=== PATIENT | male | born 1980 | race Hispanic/Latino ===

== ENCOUNTER → 2018-07-20 10:36 | Outpatient (CLI) | payer OTHER, SELFPAY ==
--- NOTE | 2018-07-20 | DI.RAD.S_ITS ---
PROCEDURE: XR SHOULDER LT MIN 2V INDICATIONS: LEFT SHOULDER TENDERNESS TECHNIQUE: 3 views of the shoulder were acquired. COMPARISON: [facility], , SHOULDER MINIMUM 2VIEW RIGHT, 08/14/2017, 14:21. FINDINGS: Bones: No fractures or dislocations. No suspicious bony lesions. Visualized ribs appear intact. Mild glenohumeral spurring Soft tissues: No suspicious soft tissue calcifications. IMPRESSION: No fracture. Mild degenerative spurring. Dictated by: Ramesh Mosley M.D. on 07/20/2018 at 12:07 Approved by: Ramesh Mosley M.D. on 07/20/2018 at 12:09
== END ==
PROVIDERS: Visit Provider Nurse Practitioner Family
DX: M25.512 Pain in left shoulder (principal); M75.92 Shoulder lesion, unspecified, left shoulder
CPT/HCPCS: 73030

== ENCOUNTER 2018-08-04 08:35 | Emergency (ER) | payer OTHER, SELFPAY ==
--- NOTE | 2018-08-04 10:30 | ED.UPPEXIN ---
HPI - Extremity Injury (Upper) General Chief Complaint: Extremity Injury, Upper Stated Complaint: LEFT SHOULDER PAIN Time Seen by Provider: 08/04/18 10:30 Source: patient and family ( ) Mode of arrival: ambulatory Limitations: language barrier ( is translating, they defer hardware technician) History of Present Illness HPI narrative: This is a 37-year-old male who comes with complaint of left shoulder pain. Patient initially had a right shoulder injury which he has been on limited work restrictions so he has been using his left shoulder majority of the time. Patient states that he had been working pretty extensively with the shoulder and had done some additional work from normal. 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 Patient has not had any weakness but he does have pain with movement. Patient has little bit numbness over the shoulder itself. None radiating down the arm. Pain radiates about midway down the humerus. Patient does not have any problems with gripping or dropping items. Patient has been taking meloxicam and over the last 24 hr has not been controlling his pain. He has seen a physician and had an x-ray on July about 2 weeks ago here at the hospital. He was told there was some changes in the joint. Related Data Home Medications Medication Instructions Recorded Confirmed meloxicam 15 mg PO DAILY 08/04/18 08/04/18 Previous Rx's Medication Instructions Recorded hydrocodone-acetaminophen [Burnside] 1 tab PO Q6H PRN #10 tab 08/04/18 prednisone 40 mg PO DAILY #10 tab 08/04/18 Allergies Allergy/AdvReac Type Severity Reaction Status Date / Time No Known Drug Allergies Allergy Verified 08/04/18 10:32 Review of Systems Constitutional Denies weakness ENT Ears, Nose, Mouth, and Throat: Denies neck pain Musculoskeletal Denies back pain, Reports arthralgias, Denies joint swelling, Reports limited range of motion, Denies muscle weakness, Denies neck pain, Reports numbness (over shoulder), Reports stiffness and Denies tingling Integumentary/Breasts Denies erythema, Denies unusual bruising and Denies wounds Neurologic Denies focal weakness, Reports numbness (over shoulder), Denies sensory deficit, Denies tingling and Denies weakness Exam Narrative Exam Narrative: GENERAL: Alert and oriented x three, Well-nourished, well-appearing male in mild distress. HEENT: Head normocephalic, atraumatic, EOMI, pupils reactive, face symmetric, moist mucous membranes NECK: Supple, full range of motion CARDIOVASCULAR: Regular rate and rhythm without murmurs, rubs or gallops. RESPIRATORY: Breath sounds equal bilaterally, no wheezes rales or rhonchi. ABDOMEN: Soft, nontender. Normoactive bowel sounds all 4 quadrants. No guarding or rebound, rigidity, no mass EXTREMITIES: Normal range of motion, no clubbing or edema. 2+ pulses bilateral upper extremities. Cloth Finishing Range Back Tender is equal bilaterally patient has equal strength push and pull. Patient has discomfort with internal external rotation as well as flexion extension. He has tenderness over the biceps tendon with movement but not specifically he indicates more than generalized shoulder. Patient has sort of generalized discomfort with palpation with no distinct bony pain. Patient does not have any tenderness to the cervical spine. Neurovascularly intact NEUROLOGICAL: Cranial nerves II through XII grossly intact. Moving all extremities SKIN: Warm, dry, no petechiae, no rashes or lesions. Initial Vital Signs Initial Vital Signs: Vital Signs Temperature 98.1 F 08/04/18 10:32 Pulse Rate 95 H 08/04/18 10:32 Respiratory Rate 16 08/04/18 10:32 Blood Pressure 149/94 H 08/04/18 10:32 Pulse Oximetry 99 08/04/18 10:32 Course Orders Ordered: Discontinued Medications Ketorolac Tromethamine (Toradol) 60 mg IM NOW ONE Stop: 08/04/18 10:58 Last Admin: 08/04/18 11:23 Dose: 60 mg Vital Signs - 8 hr 08/04/18 10:32 08/04/18 11:43 08/04/18 11:53 Temperature 98.1 F Pulse Rate 95 H 80 Respiratory Rate 16 14 Blood Pressure 149/94 H 135/94 H Blood Pressure [Right Arm] 136/101 H Pulse Oximetry 99 96 MDM - Extremity Injury (Upper) Imaging Data left shoulder xray 07/20/18: Radiologist's impression: Aminta BonBean H 37 M [address] [address] XRay Report Signed Patient: Bean Yun R#: [id number] : 1980Acct:[id number] Age/Sex: 37 / MDate of Service: 07/20/18 Loc: [facility] Accession Number: [id number] Procedure: XR shoulder LT min 2V Ordering Provider: Juancho Myrick PROCEDURE: XR SHOULDER LT MIN 2V INDICATIONS: LEFT SHOULDER TENDERNESS TECHNIQUE: 3 views of the shoulder were acquired. COMPARISON: [facility], , SHOULDER MINIMUM 2VIEW RIGHT, 08/14/2017, 14:21. FINDINGS: Bones: No fractures or dislocations. No suspicious bony lesions. Visualized ribs appear intact. Mild glenohumeral spurring Soft tissues: No suspicious soft tissue calcifications. IMPRESSION: No fracture. Mild degenerative spurring. Dictated by: Ramesh Mosley M.D. on 07/20/2018 at 12:07 Approved by: Ramesh Mosley M.D. on 07/20/2018 at 12:[address] [facility] Narrative Medical decision making narrative: X-ray was reviewed from earlier this month, patient has some degenerative changes. Based on his symptomatology I suspect a little bit of a tendinitis or an overuse injury.although he does not have any changes specific to a biceps tendinitis. Plan to try a short course of steroids. Patient has meloxicam and given a short course of narcotic pain medication. Discharge Plan Departure Patient Disposition: Home Clinical Impression: Left shoulder pain Discharge Date/Time: 08/04/18 11:54 Interventions: ED Discharge Assessment Last Done: 08/04/18 11:53 Instructions: DI for Tendinitis Activity Restrictions/Additional Instructions: Follow up with your L & I provider and/or orthopedic surgery in the next week for recheck. Call for an appointment. You may take narcotic pain medication 1 tablet every 6 hr as needed for pain. You may take this with your meloxicam as prescribed. Take steroids once daily until gone. This is to help decrease inflammation in the shoulder joint. 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 Prescriptions: New hydrocodone-acetaminophen [Burnside] 5-325 mg tablet 1 tab PO Q6H PRN (Reason: pain) Qty: 10 RF: 0 prednisone 20 mg tablet 40 mg PO DAILY Qty: 10 RF: 0 No Action meloxicam 15 mg tablet 15 mg PO DAILY RF: 0 Referrals: Sravan Iverson MD [Physician] - Stand Alone Forms: Work Release Note
[2018-08-04 10:32] VITALS: BP 149/94; PULSE 95; RESP 16; TEMP 36.7; O2SAT 99; BMI 29.7
--- NOTE | 2018-08-04 10:57 | ED_ITS ---
HPI - Extremity Injury (Upper) General Chief Complaint: Extremity Injury, Upper Stated Complaint: LEFT SHOULDER PAIN Time Seen by Provider: 08/04/18 10:30 Source: patient and family ( ) Mode of arrival: ambulatory Limitations: language barrier ( is translating, they defer social work coordinator) History of Present Illness HPI narrative: This is a 37-year-old male who comes with complaint of left shoulder pain. Patient initially had a right shoulder injury which he has been on limited work restrictions so he has been using his left shoulder majority of the time. Patient states that he had been working pretty extensively with the shoulder and had done some additional work from normal. 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 Patient has not had any weakness but he does have pain with movement. Patient has little bit numbness over the shoulder itself. None radiating down the arm. Pain radiates about midway down the humerus. Patient does not have any problems with gripping or dropping items. Patient has been taking meloxicam and over the last 24 hr has not been controlling his pain. He has seen a physician and had an x-ray on July about 2 weeks ago here at the hospital. He was told there was some changes in the joint. Related Data Home Medications Medication Instructions Recorded Confirmed meloxicam 15 mg PO DAILY 08/04/18 08/04/18 Previous Rx's Medication Instructions Recorded hydrocodone-acetaminophen [Blackshear] 1 tab PO Q6H PRN #10 tab 08/04/18 prednisone 40 mg PO DAILY #10 tab 08/04/18 Allergies Allergy/AdvReac Type Severity Reaction Status Date / Time No Known Drug Allergies Allergy Verified 08/04/18 10:32 Review of Systems Constitutional Denies weakness ENT Ears, Nose, Mouth, and Throat: Denies neck pain Musculoskeletal Denies back pain, Reports arthralgias, Denies joint swelling, Reports limited range of motion, Denies muscle weakness, Denies neck pain, Reports numbness (over shoulder), Reports stiffness and Denies tingling Integumentary/Breasts Denies erythema, Denies unusual bruising and Denies wounds Neurologic Denies focal weakness, Reports numbness (over shoulder), Denies sensory deficit, Denies tingling and Denies weakness Exam Narrative Exam Narrative: GENERAL: Alert and oriented x three, Well-nourished, well-appearing male in mild distress. HEENT: Head normocephalic, atraumatic, EOMI, pupils reactive, face symmetric, moist mucous membranes NECK: Supple, full range of motion CARDIOVASCULAR: Regular rate and rhythm without murmurs, rubs or gallops. RESPIRATORY: Breath sounds equal bilaterally, no wheezes rales or rhonchi. ABDOMEN: Soft, nontender. Normoactive bowel sounds all 4 quadrants. No guarding or rebound, rigidity, no mass EXTREMITIES: Normal range of motion, no clubbing or edema. 2+ pulses bilateral upper extremities. Adjuster And Inspector is equal bilaterally patient has equal strength push and pull. Patient has discomfort with internal external rotation as well as flexion extension. He has tenderness over the biceps tendon with movement but not specifically he indicates more than generalized shoulder. Patient has sort of generalized discomfort with palpation with no distinct bony pain. Patient does not have any tenderness to the cervical spine. Neurovascularly intact NEUROLOGICAL: Cranial nerves II through XII grossly intact. Moving all extremities SKIN: Warm, dry, no petechiae, no rashes or lesions. Initial Vital Signs Initial Vital Signs: Vital Signs Temperature 98.1 F 08/04/18 10:32 Pulse Rate 95 H 08/04/18 10:32 Respiratory Rate 16 08/04/18 10:32 Blood Pressure 149/94 H 08/04/18 10:32 Pulse Oximetry 99 08/04/18 10:32 Course Orders Ordered: Discontinued Medications Ketorolac Tromethamine (Toradol) 60 mg IM NOW ONE Stop: 08/04/18 10:58 Last Admin: 08/04/18 11:23 Dose: 60 mg Vital Signs - 8 hr 08/04/18 10:32 08/04/18 11:43 08/04/18 11:53 Temperature 98.1 F Pulse Rate 95 H 80 Respiratory Rate 16 14 Blood Pressure 149/94 H 135/94 H Blood Pressure [Right Arm] 136/101 H Pulse Oximetry 99 96 MDM - Extremity Injury (Upper) Imaging Data left shoulder xray 07/20/18: Radiologist's impression: Aminta BonBean H 37 M [address] [address] XRay Report Signed Patient: Bean Yun R#: [id number] : 1980Acct:[id number] Age/Sex: 37 / MDate of Service: 07/20/18 Loc: [facility] Accession Number: [id number] Procedure: XR shoulder LT min 2V Ordering Provider: Juancho Myrick PROCEDURE: XR SHOULDER LT MIN 2V INDICATIONS: LEFT SHOULDER TENDERNESS TECHNIQUE: 3 views of the shoulder were acquired. COMPARISON: [facility], , SHOULDER MINIMUM 2VIEW RIGHT, 08/14/2017, 14:21. FINDINGS: Bones: No fractures or dislocations. No suspicious bony lesions. Visualized ribs appear intact. Mild glenohumeral spurring Soft tissues: No suspicious soft tissue calcifications. IMPRESSION: No fracture. Mild degenerative spurring. Dictated by: Ramesh Mosley M.D. on 07/20/2018 at 12:07 Approved by: Ramesh Mosley M.D. on 07/20/2018 at 12:09 [facility] Narrative Medical decision making narrative: X-ray was reviewed from earlier this month, patient has some degenerative changes. Based on his symptomatology I suspect a little bit of a tendinitis or an overuse injury.although he does not have any changes specific to a biceps tendinitis. Plan to try a short course of steroids. Patient has meloxicam and given a short course of narcotic pain medication. Discharge Plan Departure Patient Disposition: Home Clinical Impression: Left shoulder pain Discharge Date/Time: 08/04/18 11:54 Interventions: ED Discharge Assessment Last Done: 08/04/18 11:53 Instructions: DI for Tendinitis Activity Restrictions/Additional Instructions: Follow up with your L & I provider and/or orthopedic surgery in the next week for recheck. Call for an appointment. You may take narcotic pain medication 1 tablet every 6 hr as needed for pain. You may take this with your meloxicam as prescribed. Take steroids once daily until gone. This is to help decrease inflammation in the shoulder joint. 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 Prescriptions: New hydrocodone-acetaminophen [Blackshear] 5-325 mg tablet 1 tab PO Q6H PRN (Reason: pain) Qty: 10 RF: 0 prednisone 20 mg tablet 40 mg PO DAILY Qty: 10 RF: 0 No Action meloxicam 15 mg tablet 15 mg PO DAILY RF: 0 Referrals: Sravan Iverson MD [Physician] - Stand Alone Forms: Work Release Note
[2018-08-04] MEDS: KETOROLAC 60 MG/2 ML VIAL IM (11:23)
[2018-08-04 11:43] VITALS: BP 136/101; PULSE 80; RESP 14; O2SAT 96
[2018-08-04 11:53] VITALS: BP 135/94
== END 2018-08-04 11:54 | disposition home or self-care (01) ==
PROVIDERS: Emergency Provider Emergency Medicine
DX: M25.512 Pain in left shoulder (principal); Y99.0 Civilian activity done for income or pay
CPT/HCPCS: 96372; 99282; 99283; J1885

== ENCOUNTER → 2019-09-25 14:41 | Outpatient (CLI) | payer OTHER, SELFPAY ==
--- NOTE | 2019-09-25 14:56 | DI.RAD.S_ITS ---
PROCEDURE: XR CHEST 2V INDICATIONS: Cough and fever - crackles on exam right base TECHNIQUE: 2 views of the chest were acquired. COMPARISON: [facility], , CHEST 2VW, 03/01/2013, 11:43. FINDINGS: Surgical changes and devices: None. Lungs and pleura: Lungs are clear. No pleural effusions or pneumothorax. Mediastinum: Mediastinal contours are normal. Heart size is normal. Bones and chest wall: No suspicious bony abnormalities. Soft tissues appear unremarkable. IMPRESSION: Stable chest. No acute cardiopulmonary process is evident. Dictated by: Gage Downey M.D. on 09/25/2019 at 14:58 Approved by: Gage Downey M.D. on 09/25/2019 at 14:58
[2019-09-25 15:23] LABS: Add Manual Diff / Slide Review NO; Basophils Absolute Auto 100 /uL (0-100); Basophils Percent Auto 0.8 % (0-2); Eosinophils Absolute Auto 200 /uL (0-450); Eosinophils Percent Auto 2.6 % (2-4); Hematocrit 44.6 % (41-53); Hemoglobin 14.9 g/dL (13.5-17.5); Lymphocytes Absolute Auto 1600 /uL (1100-4500); Lymphocytes Percent Auto 20.2 % (25-40); Mean Corpuscular HGB Conc 33.3 % (30-36); Mean Corpuscular Hemoglobin 28.7 PG (26-34); Mean Corpuscular Volume 86.2 fL (80-100); Monocytes Absolute Auto 800 /uL (0-900); Monocytes Percent Auto 10.1 % (3-14); Neutrophils Absolute Auto 5200 /uL (1500-7000); Neutrophils Percent Auto 66.3 % (50-75); Platelet Count 273 X10^3/uL (150-400); Red Blood Cell Count 5.18 X10^6/uL (4.5-5.9); Red Cell Distribution Width 13.9 % (11.6-14.8); White Blood Cell Count 7.9 X10^3/uL (4.5-11.0)
[2019-09-25 18:07] LABS: Adenovirus Not Detected (Not Detect); Bordetella pertussis Not Detected (Not Detect); Chlamydophila pneumoniae Not Detected (Not Detect); Coronavirus 229E Not Detected (Not Detect); Coronavirus HKU1 Not Detected (Not Detect); Coronavirus NL 63 Not Detected (Not Detect); Coronavirus OC43 Not Detected (Not Detect); Human Metapneumovirus Not Detected (Not Detect); Human Rhinovirus/Enterovirus Not Detected (Not Detect); Influenza A Not Detected (Not Detect); Influenza B Not Detected (Not Detect); Mycoplasma pneumoniae Not Detected (Not Detect); Parainfluenza Virus 1 Not Detected (Not Detect); Parainfluenza Virus 2 Not Detected (Not Detect); Parainfluenza Virus 3 Not Detected (Not Detect); Parainfluenza Virus 4 Not Detected (Not Detect); Respiratory Syncytial Virus Not Detected (Not Detect)
[2019-09-26 09:13] LABS: COVID19 Sendout Positive (Not Detect)
== END ==
PROVIDERS: Visit Provider Physician Assistant
DX: U07.1 COVID-19 (principal)
CPT/HCPCS: 36415; 71046; 85025; 87633; 87635

== ENCOUNTER 2020-08-13 16:45 | Outpatient (RCR) | payer OTHER, SELFPAY ==
--- NOTE | 2020-06-13 17:30 | PT.OIE ---
Current Diagnoses Pain in left lower leg (06/13/20) Other injury of other muscle(s) and tendon(s) of posterior muscle group at lower leg level, unspecified leg, initial encounter (06/13/20) Other injury of other muscle(s) and tendon(s) of posterior muscle group at lower leg level, unspecified leg, subsequent encounter (06/13/20) Visit Care Team Role Provider Type Maranda Mcgowan PA-C Attending Provider Advanced Accounting Professional Primary Care Provider Referring Provider Specialty: [facility] Address: [address] [place] [address], [facility] Email: [email or web address] Physical Therapy Initial Evaluation PT-OP-A Visit Information Start: 06/13/20 17:31 Freq: Status: Active Protocol: Document 06/13/20 16:40 DCW (Rec: 06/13/20 17:52 DCW [id number]) Out-Patient Physical Therapy Visit Information Visit Information Visit Type Initial Evaluation Visit Start Time 16:40 Visit Stop Time 17:20 Total Visit Minutes 45 Visit Number 1 Number of SEISMOGRAPH SHOOTER Visits 0 Evaluation Information Evaluation Date 06/13/20 PT-OP-B Current Condition Start: 06/13/20 17:31 Freq: Status: Active Protocol: Document 06/13/20 16:40 DCW (Rec: 06/13/20 17:52 DCW [id number]) Current Condition History of Current Condition Onset Date 04/07/2020 Current Complaints L leg pain, numbness, cramping History of Current Condition Pt is a 39 year old male 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 Pt injured his leg at work on 04/07/2020. 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 When he climbed down off the forklift, he heard a pop and felt immediate pain in his calf. Pt notes he took two weeks off from work, and has since returned to work. Admits that he actually feels much better when he is at work, and doesn't really have any pain or difficulty until he gets home and attempts to un-weight his leg. At work, pt uses a crew-cut sock pulled up to provide warmth and mild compression, which he reports helps him feel a lot better. Pt notes that he is doing quite a bit better than he was originally, but it still bothers him on a daily basis. PT-OP-C Subjective Start: 06/13/20 17:31 Freq: Status: Active Protocol: Document 06/13/20 16:40 DCW (Rec: 06/13/20 17:52 DCW [id number]) OP-PT Subjective Patient Comments Patient Comments I keep having unusual sensations down my leg, it's like nothing I had felt before . Patient Reported Progress Improving Patient Questionnaires Lower Extremity Functional Scale LEFS Score 50/80 LEFS Impairment 20 to 39% Impaired (Score 48- 62) PT-OP-F Manual Assessment Start: 06/13/20 17:31 Freq: Status: Active Protocol: Document 06/13/20 16:40 DCW (Rec: 06/14/20 10:04 DCW [id number]) Manual Assessments Soft Tissue Assessment Soft Tissue Mobility Assessment Tenderness to palpation 2/4: Pain with wincing deep along medial edge of left tibia, noticeable absence of muscle mass in small area along same location. Additionally, pt complaints if tenderness along left Achilles tendon and insertion. PT-OP-L Special Tests Start: 06/13/20 17:31 Freq: Status: Active Protocol: Document 06/13/20 16:40 DCW (Rec: 06/14/20 10:04 DCW [id number]) Special Tests Foot/Ankle Special Tests Talor Tilt Test Results Negative Post Tibiotalor Subluxation Test Results Negative Anterior Draw Test Results Negative PT-OP-M Strength Start: 06/13/20 17:31 Freq: Status: Active Protocol: Document 06/13/20 16:40 DCW (Rec: 06/14/20 10:04 DCW [id number]) Ankle/Foot Strength Ankle and Foot Manual Muscle Testing Left Dorsiflexion (L4) 5 Normal Plantarflexion (S1) 4+ Good+ Inversion 4+ Good+ Eversion (S1) 5 Normal PT-OP-T Assessment and Plan Start: 06/13/20 17:31 Freq: Status: Active Protocol: Document 06/13/20 16:40 DCW (Rec: 06/14/20 10:04 DCW [id number]) Physical Therapy Assessment Rehab Potential Rehabilitation Potential Fair Evaluation Complexity Number of Personal Factors/Comorbidities 0 Number of Body Systems Impaired 1-2 Clinical Presentation at Evaluation Stable Impairments Impairments Activity Tolerance,Pain,Soft Tissue Mobility,Tone Goals Two Impairment Pt experiences increased pain and numbness in leg during rest Blocker And Sewer Goal (LTG) Pt to report no increased pain after work upon removing sock from leg. LTG Duration 08/11/20 One Impairment Pt does not have an appropriate home exercise program Short Term Goal (STG) Pt to be independent and compliant with an appropriate HEP STG Duration 07/14/20 Assessment Summary Assessment Pt presents with signs and symptoms consistent with a strain of the soleus. There is a possibility, with a small area of a notable absence of muscle mass along his left medial tibia, that he has suffered a tear, and may benefit from further imaging. Pt may benefit from skilled therapy focusing on improving mobility and strength of his calf musculature. Additionally , pt was educated on the use of a LE compression stocking, which would likely provide some relief when he is at home . Physical Therapy Plan Frequency and Duration Frequency of Treatment 2x/Week Duration of Treatment Two months Plan of Care Start Date 06/13/20 Plan of Care End Date 08/11/20 Therapeutic Interventions Therapeutic Interventions Home Exercise Program,Joint Mobilizations,Manual Therapy, Patient/Caregiver Education, Self-Care/Home Management,Soft Tissue Mobilization, Therapeutic Exercises Modalities Cold Pack/Ice Massage,Electric Stimulation,Hot Packs, Ultrasound Next Visit Focus/Plan Next Note Type Treatment Note Next Visit Plan STM and modalities to calf to promote healing, gentle strengthening as tolerated
--- NOTE | 2020-06-13 17:30 | PT.OPPOC ---
Physical, Occupational & Speech Therapy At [facility] Current Diagnoses Pain in left lower leg (06/13/20) Other injury of other muscle(s) and tendon(s) of posterior muscle group at lower leg level, unspecified leg, initial encounter (06/13/20) Other injury of other muscle(s) and tendon(s) of posterior muscle group at lower leg level, unspecified leg, subsequent encounter (06/13/20) Visit Care Team Role Provider Type Maranda Mcgowan PA-C Attending Provider Advanced Burrer Operator Primary Care Provider Referring Provider Specialty: [facility] Address: [address] [place] [address], [facility] Email: [email or web address] Plan Of Care PT-OP-T Assessment and Plan Start: 06/13/20 17:31 Freq: Status: Active Protocol: Document 06/13/20 16:40 DCW (Rec: 06/14/20 10:04 DCW [id number]) Physical Therapy Assessment Rehab Potential Rehabilitation Potential Fair Evaluation Complexity Number of Personal Factors/Comorbidities 0 Number of Body Systems Impaired 1-2 Clinical Presentation at Evaluation Stable Impairments Impairments Activity Tolerance,Pain,Soft Tissue Mobility,Tone Goals Two Impairment Pt experiences increased pain and numbness in leg during rest Keno Terminal Operator Goal (LTG) Pt to report no increased pain after work upon removing sock from leg. LTG Duration 08/11/20 One Impairment Pt does not have an appropriate home exercise program Short Term Goal (STG) Pt to be independent and compliant with an appropriate HEP STG Duration 07/14/20 Assessment Summary Assessment Pt presents with signs and symptoms consistent with a strain of the soleus. There is a possibility, with a small area of a notable absence of muscle mass along his left medial tibia, that he has suffered a tear, and may benefit from further imaging. Pt may benefit from skilled therapy focusing on improving mobility and strength of his calf musculature. Additionally , pt was educated on the use of a LE compression stocking, which would likely provide some relief when he is at home . Physical Therapy Plan Frequency and Duration Frequency of Treatment 2x/Week Duration of Treatment Two months Plan of Care Start Date 06/13/20 Plan of Care End Date 08/11/20 Therapeutic Interventions Therapeutic Interventions Home Exercise Program,Joint Mobilizations,Manual Therapy, Patient/Caregiver Education, Self-Care/Home Management,Soft Tissue Mobilization, Therapeutic Exercises Modalities Cold Pack/Ice Massage,Electric Stimulation,Hot Packs, Ultrasound Next Visit Focus/Plan Next Note Type Treatment Note Next Visit Plan STM and modalities to calf to promote healing, gentle strengthening as tolerated Plan of Care Dates Plan of Care Start Date 06/13/20 Plan of Care End Date 08/11/20 Electronically Signed by: Kirill Mccarthy, PT 06/14/20 1005 Please Sign and Return: I have reviewed this Plan of Care and certify that the skilled therapy services above are required to meet the patient?s needs. Physician Signature Date Printed Name and Credentials Clinical Instructor Signature Printed Name and Credentials
--- NOTE | 2020-06-18 17:42 | PT.OTN ---
Current Diagnoses Pain in left lower leg (06/18/20) Other injury of other muscle(s) and tendon(s) of posterior muscle group at lower leg level, unspecified leg, initial encounter (06/18/20) Other injury of other muscle(s) and tendon(s) of posterior muscle group at lower leg level, unspecified leg, subsequent encounter (06/18/20) Physical Therapy Treatment Note PT-OP-A Visit Information Start: 06/13/20 17:31 Freq: Status: Active Protocol: Document 06/18/20 16:45 DCW (Rec: 06/18/20 17:38 DCW [id number]) Out-Patient Physical Therapy Visit Information Visit Information Visit Type Treatment Note Visit Note Pt and sign language interpreter attend 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 Pt injured his leg at work on 04/07/2020. 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 When he climbed down off the forklift, he heard a pop and felt immediate pain in his calf. Pt notes he took two weeks off from work, and has since returned to work. Admits that he actually feels much better when he is at work, and doesn't really have any pain or difficulty until he gets home and attempts to un-weight his leg. At work, pt uses a crew-cut sock pulled up to provide warmth and mild compression, which he reports helps him feel a lot better. Pt notes that he is doing quite a bit better than he was originally, but it still bothers him on a daily basis. PT-OP-C Subjective Start: 06/13/20 17:31 Freq: Status: Active Protocol: Document 06/18/20 16:45 DCW (Rec: 06/18/20 17:38 DCW [id number]) OP-PT Subjective Patient Comments Patient Comments Pt reports he feels the same, symptoms come and go, will occasionally have tingling or numbness in his calf PT-OP-F Manual Assessment Start: 06/13/20 17:31 Freq: Status: Active Protocol: Document 06/13/20 16:40 DCW (Rec: 06/14/20 10:04 DCW [id number]) Manual Assessments Soft Tissue Assessment Soft Tissue Mobility Assessment Tenderness to palpation 2/4: Pain with wincing deep along medial edge of left tibia, noticeable absence of muscle mass in small area along same location. Additionally, pt complaints if tenderness along left Achilles tendon and insertion. PT-OP-L Special Tests Start: 06/13/20 17:31 Freq: Status: Active Protocol: Document 06/13/20 16:40 DCW (Rec: 06/14/20 10:04 DCW [id number]) Special Tests Foot/Ankle Special Tests Talor Tilt Test Results Negative Post Tibiotalor Subluxation Test Results Negative Anterior Draw Test Results Negative PT-OP-M Strength Start: 06/13/20 17:31 Freq: Status: Active Protocol: Document 06/13/20 16:40 DCW (Rec: 06/14/20 10:04 DCW [id number]) Ankle/Foot Strength Ankle and Foot Manual Muscle Testing Left Dorsiflexion (L4) 5 Normal Plantarflexion (S1) 4+ Good+ Inversion 4+ Good+ Eversion (S1) 5 Normal PT-OP-Q Treatments Start: 06/13/20 17:31 Freq: Status: Active Protocol: Document 06/18/20 16:45 DCW (Rec: 06/18/20 17:38 DCW [id number]) Therapeutic Exercises Standing Exercises 4 Standing Exercise Name BAPS Board Side left Resistance Lv 3 3 Standing Exercise Name SLS Side left Equipment Used Blue Foam 2 Standing Exercise Name Eccentric heel raise 1 Standing Exercise Name Gastroc stretch Side bilateral Equipment Used ANN Manual Therapy Treatment Soft Tissue Mobilization 1 Body Location L medial calf Mobilization Type Strumming,Sustained Pressure Intensity/Depth Moderate Body Position Prone PT-OP-R Modalities Start: 06/13/20 17:31 Freq: Status: Active Protocol: Document 06/18/20 16:45 DCW (Rec: 06/18/20 17:38 DCW [id number]) Ultrasound Therapy Treatment Left Lower Medial Leg Treatment Duration (minutes) 10 Patient Position Prone Coupling Medium Ultrasound Gel Frequency Setting (mHz) 1 Mode Setting Continuous Duty Cycle 100% Intensity Setting (w/cm2) 1.2 PT-OP-T Assessment and Plan Start: 06/13/20 17:31 Freq: Status: Active Protocol: Document 06/18/20 16:45 DCW (Rec: 06/18/20 17:38 DCW [id number]) Physical Therapy Assessment Impairments Impairments Activity Tolerance,Pain,Soft Tissue Mobility,Tone Goals Two Impairment Pt experiences increased pain and numbness in leg during rest Nursing Home Goal (LTG) Pt to report no increased pain after work upon removing sock from leg. LTG Duration 08/11/20 One Impairment Pt does not have an appropriate home exercise program Short Term Goal (STG) Pt to be independent and compliant with an appropriate HEP STG Duration 07/14/20 Assessment Summary Assessment Pt tolerated treatment fairly well today, noted that it felt different after US and STM. Fatigued with TherEx, but felt more like an exercised muscle than his usual pain. Physical Therapy Plan Frequency and Duration Frequency of Treatment 2x/Week Duration of Treatment Two months Plan of Care Start Date 06/13/20 Plan of Care End Date 08/11/20 Therapeutic Interventions Therapeutic Interventions Home Exercise Program,Joint Mobilizations,Manual Therapy, Patient/Caregiver Education, Self-Care/Home Management,Soft Tissue Mobilization, Therapeutic Exercises Modalities Cold Pack/Ice Massage,Electric Stimulation,Hot Packs, Ultrasound Next Visit Focus/Plan Next Note Type Treatment Note Next Visit Plan STM and modalities to calf to promote healing, gentle strengthening as tolerated
--- NOTE | 2020-06-20 17:53 | PT.OTN ---
Current Diagnoses Pain in left lower leg (06/20/20) Other injury of other muscle(s) and tendon(s) of posterior muscle group at lower leg level, unspecified leg, initial encounter (06/20/20) Other injury of other muscle(s) and tendon(s) of posterior muscle group at lower leg level, unspecified leg, subsequent encounter (06/20/20) Physical Therapy Treatment Note PT-OP-A Visit Information Start: 06/13/20 17:31 Freq: Status: Active Protocol: Document 06/20/20 16:45 DCW (Rec: 06/20/20 17:52 DCW [id number]) Out-Patient Physical Therapy Visit Information Visit Information Visit Type Treatment Note Visit Note Pt and rate supervisor attend 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 Pt injured his leg at work on 04/07/2020. 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 When he climbed down off the forklift, he heard a pop and felt immediate pain in his calf. Pt notes he took two weeks off from work, and has since returned to work. Admits that he actually feels much better when he is at work, and doesn't really have any pain or difficulty until he gets home and attempts to un-weight his leg. At work, pt uses a crew-cut sock pulled up to provide warmth and mild compression, which he reports helps him feel a lot better. Pt notes that he is doing quite a bit better than he was originally, but it still bothers him on a daily basis. PT-OP-C Subjective Start: 06/13/20 17:31 Freq: Status: Active Protocol: Document 06/20/20 16:45 DCW (Rec: 06/20/20 17:52 DCW [id number]) OP-PT Subjective Patient Comments Patient Comments Pt notes he woke up this morning and felt like it was better, but he is still getting some cramping/burning down his calf. PT-OP-F Manual Assessment Start: 06/13/20 17:31 Freq: Status: Active Protocol: Document 06/13/20 16:40 DCW (Rec: 06/14/20 10:04 DCW [id number]) Manual Assessments Soft Tissue Assessment Soft Tissue Mobility Assessment Tenderness to palpation 2/4: Pain with wincing deep along medial edge of left tibia, noticeable absence of muscle mass in small area along same location. Additionally, pt complaints if tenderness along left Achilles tendon and insertion. PT-OP-L Special Tests Start: 06/13/20 17:31 Freq: Status: Active Protocol: Document 06/13/20 16:40 DCW (Rec: 06/14/20 10:04 DCW [id number]) Special Tests Foot/Ankle Special Tests Talor Tilt Test Results Negative Post Tibiotalor Subluxation Test Results Negative Anterior Draw Test Results Negative PT-OP-M Strength Start: 06/13/20 17:31 Freq: Status: Active Protocol: Document 06/13/20 16:40 DCW (Rec: 06/14/20 10:04 DCW [id number]) Ankle/Foot Strength Ankle and Foot Manual Muscle Testing Left Dorsiflexion (L4) 5 Normal Plantarflexion (S1) 4+ Good+ Inversion 4+ Good+ Eversion (S1) 5 Normal PT-OP-Q Treatments Start: 06/13/20 17:31 Freq: Status: Active Protocol: Document 06/20/20 16:45 DCW (Rec: 06/20/20 17:52 DCW [id number]) Gym Equipment Shuttle Balance Red Details Ankle DF/PF Therapeutic Exercises Sitting Exercises 2 Sitting Exercise Name Ankle DF Side left Resistance Lv 3 Equipment Used T-band 1 Sitting Exercise Name Ankle PF Side left Resistance Lv 3 Equipment Used T-band Standing Exercises 3 Standing Exercise Name SLS Side left Equipment Used Blue Foam Manual Therapy Treatment Soft Tissue Mobilization 1 Body Location L medial calf Mobilization Type Strumming,Sustained Pressure Intensity/Depth Moderate Body Position Prone PT-OP-R Modalities Start: 06/13/20 17:31 Freq: Status: Active Protocol: Document 06/20/20 16:45 DCW (Rec: 06/20/20 17:52 DCW [id number]) Ultrasound Therapy Treatment Left Lower Medial Leg Treatment Duration (minutes) 10 Patient Position Prone Coupling Medium Ultrasound Gel Frequency Setting (mHz) 1 Mode Setting Continuous Duty Cycle 100% Intensity Setting (w/cm2) 1.2 PT-OP-T Assessment and Plan Start: 06/13/20 17:31 Freq: Status: Active Protocol: Document 06/20/20 16:45 DCW (Rec: 06/20/20 17:52 DCW [id number]) Physical Therapy Assessment Impairments Impairments Activity Tolerance,Pain,Soft Tissue Mobility,Tone Goals Two Impairment Pt experiences increased pain and numbness in leg during rest Skiver Operator Goal (LTG) Pt to report no increased pain after work upon removing sock from leg. LTG Duration 08/11/20 One Impairment Pt does not have an appropriate home exercise program Short Term Goal (STG) Pt to be independent and compliant with an appropriate HEP STG Duration 07/14/20 Assessment Summary Assessment Pt continuing to have pain and difficulty, no real change overall with treatment. Attempted K-tape today to help with support of the calf. If pt continues to make minimal progress, may need to return to PCP for further testing and potential imaging. Physical Therapy Plan Frequency and Duration Frequency of Treatment 2x/Week Duration of Treatment Two months Plan of Care Start Date 06/13/20 Plan of Care End Date 08/11/20 Therapeutic Interventions Therapeutic Interventions Home Exercise Program,Joint Mobilizations,Manual Therapy, Patient/Caregiver Education, Self-Care/Home Management,Soft Tissue Mobilization, Therapeutic Exercises Modalities Cold Pack/Ice Massage,Electric Stimulation,Hot Packs, Ultrasound Next Visit Focus/Plan Next Note Type Treatment Note Next Visit Plan STM and modalities to calf to promote healing, gentle strengthening as tolerated
--- NOTE | 2020-06-25 17:42 | PT.OTN ---
Current Diagnoses Pain in left lower leg (06/25/20) Other injury of other muscle(s) and tendon(s) of posterior muscle group at lower leg level, unspecified leg, initial encounter (06/25/20) Other injury of other muscle(s) and tendon(s) of posterior muscle group at lower leg level, unspecified leg, subsequent encounter (06/25/20) Physical Therapy Treatment Note PT-OP-A Visit Information Start: 06/13/20 17:31 Freq: Status: Active Protocol: Document 06/25/20 16:45 DCW (Rec: 06/25/20 17:42 DCW [id number]) Out-Patient Physical Therapy Visit Information Visit Information Visit Type Treatment Note Visit Note Pt and associate sales attend 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 Pt injured his leg at work on 04/07/2020. 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 When he climbed down off the forklift, he heard a pop and felt immediate pain in his calf. Pt notes he took two weeks off from work, and has since returned to work. Admits that he actually feels much better when he is at work, and doesn't really have any pain or difficulty until he gets home and attempts to un-weight his leg. At work, pt uses a crew-cut sock pulled up to provide warmth and mild compression, which he reports helps him feel a lot better. Pt notes that he is doing quite a bit better than he was originally, but it still bothers him on a daily basis. PT-OP-C Subjective Start: 06/13/20 17:31 Freq: Status: Active Protocol: Document 06/25/20 16:45 DCW (Rec: 06/25/20 17:42 DCW [id number]) OP-PT Subjective Patient Comments Patient Comments Pt notes the K-tape was helpful with controlling pain. Notes some mild continued sensitivity/discomfort, but overall feels significantly better. PT-OP-F Manual Assessment Start: 06/13/20 17:31 Freq: Status: Active Protocol: Document 06/13/20 16:40 DCW (Rec: 06/14/20 10:04 DCW [id number]) Manual Assessments Soft Tissue Assessment Soft Tissue Mobility Assessment Tenderness to palpation 2/4: Pain with wincing deep along medial edge of left tibia, noticeable absence of muscle mass in small area along same location. Additionally, pt complaints if tenderness along left Achilles tendon and insertion. PT-OP-L Special Tests Start: 06/13/20 17:31 Freq: Status: Active Protocol: Document 06/13/20 16:40 DCW (Rec: 06/14/20 10:04 DCW [id number]) Special Tests Foot/Ankle Special Tests Talor Tilt Test Results Negative Post Tibiotalor Subluxation Test Results Negative Anterior Draw Test Results Negative PT-OP-M Strength Start: 06/13/20 17:31 Freq: Status: Active Protocol: Document 06/13/20 16:40 DCW (Rec: 06/14/20 10:04 DCW [id number]) Ankle/Foot Strength Ankle and Foot Manual Muscle Testing Left Dorsiflexion (L4) 5 Normal Plantarflexion (S1) 4+ Good+ Inversion 4+ Good+ Eversion (S1) 5 Normal PT-OP-Q Treatments Start: 06/13/20 17:31 Freq: Status: Active Protocol: Document 06/25/20 16:45 DCW (Rec: 06/25/20 17:42 DCW [id number]) Gym Equipment Shuttle Balance Red Details Ankle DF/PF Therapeutic Exercises Standing Exercises 3 Standing Exercise Name SLS Side left Equipment Used Blue Foam, BOSU Manual Therapy Treatment Soft Tissue Mobilization 1 Body Location L medial calf Mobilization Type Strumming,Sustained Pressure Intensity/Depth Moderate Body Position Prone PT-OP-R Modalities Start: 06/13/20 17:31 Freq: Status: Active Protocol: Document 06/25/20 16:45 DCW (Rec: 06/25/20 17:42 DCW [id number]) Ultrasound Therapy Treatment Left Lower Medial Leg Treatment Duration (minutes) 10 Patient Position Prone Coupling Medium Ultrasound Gel Frequency Setting (mHz) 1 Mode Setting Continuous Duty Cycle 100% Intensity Setting (w/cm2) 1.2 PT-OP-T Assessment and Plan Start: 06/13/20 17:31 Freq: Status: Active Protocol: Document 06/25/20 16:45 DCW (Rec: 06/25/20 17:42 DCW [id number]) Physical Therapy Assessment Impairments Impairments Activity Tolerance,Pain,Soft Tissue Mobility,Tone Goals Two Impairment Pt experiences increased pain and numbness in leg during rest Riveter Pneumatic Goal (LTG) Pt to report no increased pain after work upon removing sock from leg. LTG Duration 08/11/20 One Impairment Pt does not have an appropriate home exercise program Short Term Goal (STG) Pt to be independent and compliant with an appropriate HEP STG Duration 07/14/20 Assessment Summary Assessment Pt doing much better today, overall just some mild sensitivity and burning with activity, minimal discomfort with palpation. Physical Therapy Plan Frequency and Duration Frequency of Treatment 2x/Week Duration of Treatment Two months Plan of Care Start Date 06/13/20 Plan of Care End Date 08/11/20 Therapeutic Interventions Therapeutic Interventions Home Exercise Program,Joint Mobilizations,Manual Therapy, Patient/Caregiver Education, Self-Care/Home Management,Soft Tissue Mobilization, Therapeutic Exercises Modalities Cold Pack/Ice Massage,Electric Stimulation,Hot Packs, Ultrasound Next Visit Focus/Plan Next Note Type Treatment Note Next Visit Plan STM and modalities to calf to promote healing, gentle strengthening as tolerated
--- NOTE | 2020-06-27 17:39 | PT.OTN ---
Current Diagnoses Pain in left lower leg (06/27/20) Other injury of other muscle(s) and tendon(s) of posterior muscle group at lower leg level, unspecified leg, initial encounter (06/27/20) Other injury of other muscle(s) and tendon(s) of posterior muscle group at lower leg level, unspecified leg, subsequent encounter (06/27/20) Physical Therapy Treatment Note PT-OP-A Visit Information Start: 06/13/20 17:31 Freq: Status: Active Protocol: Document 06/27/20 16:52 DCW (Rec: 06/27/20 17:38 DCW [id number]) Out-Patient Physical Therapy Visit Information Visit Information Visit Type Treatment Note Visit Note Pt and seismic interpreter attend 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 Pt injured his leg at work on 04/07/2020. 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 When he climbed down off the forklift, he heard a pop and felt immediate pain in his calf. Pt notes he took two weeks off from work, and has since returned to work. Admits that he actually feels much better when he is at work, and doesn't really have any pain or difficulty until he gets home and attempts to un-weight his leg. At work, pt uses a crew-cut sock pulled up to provide warmth and mild compression, which he reports helps him feel a lot better. Pt notes that he is doing quite a bit better than he was originally, but it still bothers him on a daily basis. PT-OP-C Subjective Start: 06/13/20 17:31 Freq: Status: Active Protocol: Document 06/27/20 16:52 DCW (Rec: 06/27/20 17:38 DCW [id number]) OP-PT Subjective Patient Comments Patient Comments Pt notes that sometimes it feels good, other times theres a little mild poking pain with some work activities PT-OP-F Manual Assessment Start: 06/13/20 17:31 Freq: Status: Active Protocol: Document 06/13/20 16:40 DCW (Rec: 06/14/20 10:04 DCW [id number]) Manual Assessments Soft Tissue Assessment Soft Tissue Mobility Assessment Tenderness to palpation 2/4: Pain with wincing deep along medial edge of left tibia, noticeable absence of muscle mass in small area along same location. Additionally, pt complaints if tenderness along left Achilles tendon and insertion. PT-OP-L Special Tests Start: 06/13/20 17:31 Freq: Status: Active Protocol: Document 06/13/20 16:40 DCW (Rec: 06/14/20 10:04 DCW [id number]) Special Tests Foot/Ankle Special Tests Talor Tilt Test Results Negative Post Tibiotalor Subluxation Test Results Negative Anterior Draw Test Results Negative PT-OP-M Strength Start: 06/13/20 17:31 Freq: Status: Active Protocol: Document 06/13/20 16:40 DCW (Rec: 06/14/20 10:04 DCW [id number]) Ankle/Foot Strength Ankle and Foot Manual Muscle Testing Left Dorsiflexion (L4) 5 Normal Plantarflexion (S1) 4+ Good+ Inversion 4+ Good+ Eversion (S1) 5 Normal PT-OP-Q Treatments Start: 06/13/20 17:31 Freq: Status: Active Protocol: Document 06/27/20 16:52 DCW (Rec: 06/27/20 17:38 DCW [id number]) Gym Equipment Shuttle Recovery Bilateral Heel Raises Resistance 75# Therapeutic Exercises Standing Exercises 4 Standing Exercise Name BAPS Board Side left Resistance Lv 4 Comments DF/PF, Lat Manual Therapy Treatment Soft Tissue Mobilization 1 Body Location L medial calf Mobilization Type Strumming,Sustained Pressure Intensity/Depth Moderate Body Position Prone Taping 1 Body Location Y-strip Medial ankle up medial calf Type of Tape Kinesio Tape PT-OP-R Modalities Start: 01/06/21 17:31 Freq: Status: Active Protocol: Document 06/27/20 16:52 DCW (Rec: 06/27/20 17:38 DCW [id number]) Ultrasound Therapy Treatment Left Lower Medial Leg Treatment Duration (minutes) 10 Patient Position Prone Coupling Medium Ultrasound Gel Frequency Setting (mHz) 1 Mode Setting Continuous Duty Cycle 100% Intensity Setting (w/cm2) 1.2 PT-OP-T Assessment and Plan Start: 06/13/20 17:31 Freq: Status: Active Protocol: Document 06/27/20 16:52 DCW (Rec: 06/27/20 17:38 DCW [id number]) Physical Therapy Assessment Impairments Impairments Activity Tolerance,Pain,Soft Tissue Mobility,Tone Goals Two Impairment Pt experiences increased pain and numbness in leg during rest Cane Flume Feeding Machine Operator Goal (LTG) Pt to report no increased pain after work upon removing sock from leg. LTG Duration 08/11/20 One Impairment Pt does not have an appropriate home exercise program Short Term Goal (STG) Pt to be independent and compliant with an appropriate HEP STG Duration 07/14/20 Assessment Summary Assessment Pt still having some pain and burning with overuse, recommended trying ice after work to help with pain. Physical Therapy Plan Frequency and Duration Frequency of Treatment 2x/Week Duration of Treatment Two months Plan of Care Start Date 06/13/20 Plan of Care End Date 08/11/20 Therapeutic Interventions Therapeutic Interventions Home Exercise Program,Joint Mobilizations,Manual Therapy, Patient/Caregiver Education, Self-Care/Home Management,Soft Tissue Mobilization, Therapeutic Exercises Modalities Cold Pack/Ice Massage,Electric Stimulation,Hot Packs, Ultrasound Next Visit Focus/Plan Next Note Type Treatment Note Next Visit Plan STM and modalities to calf to promote healing, gentle strengthening as tolerated
--- NOTE | 2020-07-02 17:45 | PT.OTN ---
Current Diagnoses Pain in left lower leg (07/02/20) Other injury of other muscle(s) and tendon(s) of posterior muscle group at lower leg level, unspecified leg, initial encounter (07/02/20) Other injury of other muscle(s) and tendon(s) of posterior muscle group at lower leg level, unspecified leg, subsequent encounter (07/02/20) Physical Therapy Treatment Note PT-OP-A Visit Information Start: 06/13/20 17:31 Freq: Status: Active Protocol: Document 07/02/20 16:47 DCW (Rec: 07/02/20 17:45 DCW [id number]) Out-Patient Physical Therapy Visit Information Visit Information Visit Type Treatment Note Visit Note Pt and 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 Pt injured his leg at work on 04/07/2020. 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 When he climbed down off the forklift, he heard a pop and felt immediate pain in his calf. Pt notes he took two weeks off from work, and has since returned to work. Admits that he actually feels much better when he is at work, and doesn't really have any pain or difficulty until he gets home and attempts to un-weight his leg. At work, pt uses a crew-cut sock pulled up to provide warmth and mild compression, which he reports helps him feel a lot better. Pt notes that he is doing quite a bit better than he was originally, but it still bothers him on a daily basis. PT-OP-C Subjective Start: 06/13/20 17:31 Freq: Status: Active Protocol: Document 07/02/20 16:47 DCW (Rec: 07/02/20 17:45 DCW [id number]) OP-PT Subjective Patient Comments Patient Comments Overall, pt feels better, only occasionally has mild burning or pain. Pt does note that he had a lump along the posterior/inferior area of his medial malleoli, which caused him to remove his tape yesterday, but it appears to be better today. PT-OP-F Manual Assessment Start: 06/13/20 17:31 Freq: Status: Active Protocol: Document 06/13/20 16:40 DCW (Rec: 06/14/20 10:04 DCW [id number]) Manual Assessments Soft Tissue Assessment Soft Tissue Mobility Assessment Tenderness to palpation 2/4: Pain with wincing deep along medial edge of left tibia, noticeable absence of muscle mass in small area along same location. Additionally, pt complaints if tenderness along left Achilles tendon and insertion. PT-OP-L Special Tests Start: 06/13/20 17:31 Freq: Status: Active Protocol: Document 06/13/20 16:40 DCW (Rec: 06/14/20 10:04 DCW [id number]) Special Tests Foot/Ankle Special Tests Talor Tilt Test Results Negative Post Tibiotalor Subluxation Test Results Negative Anterior Draw Test Results Negative PT-OP-M Strength Start: 06/13/20 17:31 Freq: Status: Active Protocol: Document 06/13/20 16:40 DCW (Rec: 06/14/20 10:04 DCW [id number]) Ankle/Foot Strength Ankle and Foot Manual Muscle Testing Left Dorsiflexion (L4) 5 Normal Plantarflexion (S1) 4+ Good+ Inversion 4+ Good+ Eversion (S1) 5 Normal PT-OP-Q Treatments Start: 06/13/20 17:31 Freq: Status: Active Protocol: Document 07/02/20 16:47 DCW (Rec: 07/02/20 17:45 DCW [id number]) Gym Equipment Shuttle Balance Red Details Ankle DF/PF Therapeutic Exercises Standing Exercises 3 Standing Exercise Name SLS Side left Equipment Used Blue Foam, BOSU 1 Standing Exercise Name Gastroc stretch Side bilateral Equipment Used ANN Manual Therapy Treatment Soft Tissue Mobilization 1 Body Location L medial calf Mobilization Type Strumming,Sustained Pressure Intensity/Depth Moderate Body Position Prone Taping 1 Body Location Y-strip Medial ankle up medial calf Type of Tape Kinesio Tape PT-OP-R Modalities Start: 06/13/20 17:31 Freq: Status: Active Protocol: Document 07/02/20 16:47 DCW (Rec: 07/02/20 17:45 DCW [id number]) Ultrasound Therapy Treatment Left Lower Medial Leg Treatment Duration (minutes) 10 Patient Position Prone Coupling Medium Ultrasound Gel Frequency Setting (mHz) 1 Mode Setting Continuous Duty Cycle 100% Intensity Setting (w/cm2) 1.2 PT-OP-T Assessment and Plan Start: 06/13/20 17:31 Freq: Status: Active Protocol: Document 07/02/20 16:47 DCW (Rec: 07/02/20 17:45 DCW [id number]) Physical Therapy Assessment Impairments Impairments Activity Tolerance,Pain,Soft Tissue Mobility,Tone Goals Two Impairment Pt experiences increased pain and numbness in leg during rest Pipeline Technician Goal (LTG) Pt to report no increased pain after work upon removing sock from leg. LTG Duration 08/11/20 One Impairment Pt does not have an appropriate home exercise program Short Term Goal (STG) Pt to be independent and compliant with an appropriate HEP STG Duration 07/14/20 Assessment Summary Assessment Pt making good progress, less severe and less frequent pain. Physical Therapy Plan Frequency and Duration Frequency of Treatment 2x/Week Duration of Treatment Two months Plan of Care Start Date 06/13/20 Plan of Care End Date 08/11/20 Therapeutic Interventions Therapeutic Interventions Home Exercise Program,Joint Mobilizations,Manual Therapy, Patient/Caregiver Education, Self-Care/Home Management,Soft Tissue Mobilization, Therapeutic Exercises Modalities Cold Pack/Ice Massage,Electric Stimulation,Hot Packs, Ultrasound Next Visit Focus/Plan Next Note Type Treatment Note Next Visit Plan STM and modalities to calf to promote healing, gentle strengthening as tolerated
--- NOTE | 2020-07-16 17:40 | PT.OTN ---
Current Diagnoses Pain in left lower leg (07/16/20) Other injury of other muscle(s) and tendon(s) of posterior muscle group at lower leg level, unspecified leg, initial encounter (07/16/20) Other injury of other muscle(s) and tendon(s) of posterior muscle group at lower leg level, unspecified leg, subsequent encounter (07/16/20) Physical Therapy Treatment Note PT-OP-A Visit Information Start: 06/13/20 17:31 Freq: Status: Active Protocol: Document 07/16/20 16:45 DCW (Rec: 07/16/20 17:40 DCW [id number]) Out-Patient Physical Therapy Visit Information Visit Information Visit Type Treatment Note Visit Note Pt and costume design teacher attend 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 Pt injured his leg at work on 04/07/2020. 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 When he climbed down off the forklift, he heard a pop and felt immediate pain in his calf. Pt notes he took two weeks off from work, and has since returned to work. Admits that he actually feels much better when he is at work, and doesn't really have any pain or difficulty until he gets home and attempts to un-weight his leg. At work, pt uses a crew-cut sock pulled up to provide warmth and mild compression, which he reports helps him feel a lot better. Pt notes that he is doing quite a bit better than he was originally, but it still bothers him on a daily basis. PT-OP-C Subjective Start: 06/13/20 17:31 Freq: Status: Active Protocol: Document 07/16/20 16:45 DCW (Rec: 07/16/20 17:40 DCW [id number]) OP-PT Subjective Patient Comments Patient Comments Pt reports there is still a little bit of pain here and there, but overall feeling much better. PT-OP-F Manual Assessment Start: 06/13/20 17:31 Freq: Status: Active Protocol: Document 06/13/20 16:40 DCW (Rec: 06/14/20 10:04 DCW [id number]) Manual Assessments Soft Tissue Assessment Soft Tissue Mobility Assessment Tenderness to palpation 2/4: Pain with wincing deep along medial edge of left tibia, noticeable absence of muscle mass in small area along same location. Additionally, pt complaints if tenderness along left Achilles tendon and insertion. PT-OP-L Special Tests Start: 06/13/20 17:31 Freq: Status: Active Protocol: Document 06/13/20 16:40 DCW (Rec: 06/14/20 10:04 DCW [id number]) Special Tests Foot/Ankle Special Tests Talor Tilt Test Results Negative Post Tibiotalor Subluxation Test Results Negative Anterior Draw Test Results Negative PT-OP-M Strength Start: 06/13/20 17:31 Freq: Status: Active Protocol: Document 06/13/20 16:40 DCW (Rec: 06/14/20 10:04 DCW [id number]) Ankle/Foot Strength Ankle and Foot Manual Muscle Testing Left Dorsiflexion (L4) 5 Normal Plantarflexion (S1) 4+ Good+ Inversion 4+ Good+ Eversion (S1) 5 Normal PT-OP-Q Treatments Start: 06/13/20 17:31 Freq: Status: Active Protocol: Document 07/16/20 16:45 DCW (Rec: 07/16/20 17:40 DCW [id number]) Gym Equipment Shuttle Balance Red Details Ankle DF/PF Therapeutic Exercises Standing Exercises 3 Standing Exercise Name SLS Side left Equipment Used BOSU 1 Standing Exercise Name Gastroc stretch Side bilateral Equipment Used ANN Manual Therapy Treatment Soft Tissue Mobilization 1 Body Location L medial calf Mobilization Type Strumming,Sustained Pressure Intensity/Depth Moderate Body Position Prone Taping 1 Body Location Y-strip Medial ankle up medial calf Type of Tape Kinesio Tape PT-OP-R Modalities Start: 06/13/20 17:31 Freq: Status: Active Protocol: Document 07/16/20 16:45 DCW (Rec: 07/16/20 17:40 DCW [id number]) Ultrasound Therapy Treatment Left Lower Medial Leg Treatment Duration (minutes) 10 Patient Position Prone Coupling Medium Ultrasound Gel Frequency Setting (mHz) 1 Mode Setting Continuous Duty Cycle 100% Intensity Setting (w/cm2) 1.2 PT-OP-T Assessment and Plan Start: 06/13/20 17:31 Freq: Status: Active Protocol: Document 07/16/20 16:45 DCW (Rec: 07/16/20 17:40 DCW [id number]) Physical Therapy Assessment Impairments Impairments Activity Tolerance,Pain,Soft Tissue Mobility,Tone Goals Two Impairment Pt experiences increased pain and numbness in leg during rest Type Photography Supervisor Goal (LTG) Pt to report no increased pain after work upon removing sock from leg. LTG Duration 08/11/20 One Impairment Pt does not have an appropriate home exercise program Short Term Goal (STG) Pt to be independent and compliant with an appropriate HEP STG Duration 07/14/20 Assessment Summary Assessment Pt continues to have decrease in intensity and frequency of pain. Noticeable decrease in tone along left gastroc/soleus . Physical Therapy Plan Frequency and Duration Frequency of Treatment 2x/Week Duration of Treatment Two months Plan of Care Start Date 06/13/20 Plan of Care End Date 08/11/20 Therapeutic Interventions Therapeutic Interventions Home Exercise Program,Joint Mobilizations,Manual Therapy, Patient/Caregiver Education, Self-Care/Home Management,Soft Tissue Mobilization, Therapeutic Exercises Modalities Cold Pack/Ice Massage,Electric Stimulation,Hot Packs, Ultrasound Next Visit Focus/Plan Next Note Type Treatment Note Next Visit Plan STM and modalities to calf to promote healing, gentle strengthening as tolerated
--- NOTE | 2020-07-23 16:46 | PT.OTN ---
Current Diagnoses Pain in left lower leg (07/23/20) Other injury of other muscle(s) and tendon(s) of posterior muscle group at lower leg level, unspecified leg, initial encounter (07/23/20) Other injury of other muscle(s) and tendon(s) of posterior muscle group at lower leg level, unspecified leg, subsequent encounter (07/23/20) Physical Therapy Treatment Note PT-OP-A Visit Information Start: 06/13/20 17:31 Freq: Status: Active Protocol: Document 07/23/20 16:00 DCW (Rec: 07/23/20 16:45 DCW [id number]) Out-Patient Physical Therapy Visit Information Visit Information Visit Type Treatment Note Visit Note Pt and japanese interpreter attend 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 Pt injured his leg at work on 04/07/2020. 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 When he climbed down off the forklift, he heard a pop and felt immediate pain in his calf. Pt notes he took two weeks off from work, and has since returned to work. Admits that he actually feels much better when he is at work, and doesn't really have any pain or difficulty until he gets home and attempts to un-weight his leg. At work, pt uses a crew-cut sock pulled up to provide warmth and mild compression, which he reports helps him feel a lot better. Pt notes that he is doing quite a bit better than he was originally, but it still bothers him on a daily basis. PT-OP-C Subjective Start: 06/13/20 17:31 Freq: Status: Active Protocol: Document 07/23/20 16:00 DCW (Rec: 07/23/20 16:45 DCW [id number]) OP-PT Subjective Patient Comments Patient Comments Pt's leg continues to occasionally be a little bit tender. PT-OP-F Manual Assessment Start: 06/13/20 17:31 Freq: Status: Active Protocol: Document 06/13/20 16:40 DCW (Rec: 06/14/20 10:04 DCW [id number]) Manual Assessments Soft Tissue Assessment Soft Tissue Mobility Assessment Tenderness to palpation 2/4: Pain with wincing deep along medial edge of left tibia, noticeable absence of muscle mass in small area along same location. Additionally, pt complaints if tenderness along left Achilles tendon and insertion. PT-OP-L Special Tests Start: 06/13/20 17:31 Freq: Status: Active Protocol: Document 06/13/20 16:40 DCW (Rec: 06/14/20 10:04 DCW [id number]) Special Tests Foot/Ankle Special Tests Talor Tilt Test Results Negative Post Tibiotalor Subluxation Test Results Negative Anterior Draw Test Results Negative PT-OP-M Strength Start: 06/13/20 17:31 Freq: Status: Active Protocol: Document 06/13/20 16:40 DCW (Rec: 06/14/20 10:04 DCW [id number]) Ankle/Foot Strength Ankle and Foot Manual Muscle Testing Left Dorsiflexion (L4) 5 Normal Plantarflexion (S1) 4+ Good+ Inversion 4+ Good+ Eversion (S1) 5 Normal PT-OP-Q Treatments Start: 06/13/20 17:31 Freq: Status: Active Protocol: Document 07/23/20 16:00 DCW (Rec: 07/23/20 16:45 DCW [id number]) Gym Equipment Shuttle Recovery Bilateral Heel Raises Resistance 75# Shuttle Balance Red Details Ankle DF/PF Therapeutic Exercises Standing Exercises 3 Standing Exercise Name SLS Side left Equipment Used BOSU 1 Standing Exercise Name Gastroc stretch Side bilateral Equipment Used ANN Manual Therapy Treatment Soft Tissue Mobilization 1 Body Location L medial calf Mobilization Type Strumming,Sustained Pressure Intensity/Depth Moderate Body Position Prone Taping 1 Body Location Y-strip Medial ankle up medial calf Type of Tape Kinesio Tape PT-OP-R Modalities Start: 06/13/20 17:31 Freq: Status: Active Protocol: Document 07/23/20 16:00 DCW (Rec: 07/23/20 16:45 DCW [id number]) Ultrasound Therapy Treatment Left Lower Medial Leg Treatment Duration (minutes) 10 Patient Position Prone Coupling Medium Ultrasound Gel Frequency Setting (mHz) 1 Mode Setting Continuous Duty Cycle 100% Intensity Setting (w/cm2) 1.2 PT-OP-T Assessment and Plan Start: 06/13/20 17:31 Freq: Status: Active Protocol: Document 07/23/20 16:00 DCW (Rec: 07/23/20 16:45 DCW [id number]) Physical Therapy Assessment Impairments Impairments Activity Tolerance,Pain,Soft Tissue Mobility,Tone Goals Two Impairment Pt experiences increased pain and numbness in leg during rest Greeting Card Writer Goal (LTG) Pt to report no increased pain after work upon removing sock from leg. LTG Duration 08/11/20 One Impairment Pt does not have an appropriate home exercise program Short Term Goal (STG) Pt to be independent and compliant with an appropriate HEP STG Duration 07/14/20 Assessment Summary Assessment Pt still making progress, but continues to note pain after long work days. Physical Therapy Plan Frequency and Duration Frequency of Treatment 2x/Week Duration of Treatment Two months Plan of Care Start Date 06/13/20 Plan of Care End Date 08/11/20 Therapeutic Interventions Therapeutic Interventions Home Exercise Program,Joint Mobilizations,Manual Therapy, Patient/Caregiver Education, Self-Care/Home Management,Soft Tissue Mobilization, Therapeutic Exercises Modalities Cold Pack/Ice Massage,Electric Stimulation,Hot Packs, Ultrasound Next Visit Focus/Plan Next Note Type Treatment Note Next Visit Plan STM and modalities to calf to promote healing, gentle strengthening as tolerated
--- NOTE | 2020-07-30 17:51 | PT.OTN ---
Current Diagnoses Pain in left lower leg (07/30/20) Other injury of other muscle(s) and tendon(s) of posterior muscle group at lower leg level, unspecified leg, initial encounter (07/30/20) Other injury of other muscle(s) and tendon(s) of posterior muscle group at lower leg level, unspecified leg, subsequent encounter (07/30/20) Physical Therapy Treatment Note PT-OP-A Visit Information Start: 06/13/20 17:31 Freq: Status: Active Protocol: Document 07/30/20 16:45 DCW (Rec: 07/30/20 17:37 DCW [id number]) Out-Patient Physical Therapy Visit Information Visit Information Visit Type Treatment Note Visit Start Time 16:45 Visit Stop Time 17:25 Total Visit Minutes 40 Visit Number 9 Number of RN RELIEF CHARGE Visits 0 Evaluation Information Evaluation Date 06/13/20 PT-OP-B Current Condition Start: 06/13/20 17:31 Freq: Status: Active Protocol: Document 06/13/20 16:40 DCW (Rec: 06/13/20 17:52 DCW [id number]) Current Condition History of Current Condition Onset Date 04/07/2020 Current Complaints L leg pain, numbness, cramping History of Current Condition 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 Pt injured his leg at work on 04/07/2020. 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 When he climbed down off the forklift, he heard a pop and felt immediate pain in his calf. Pt notes he took two weeks off from work, and has since returned to work. Admits that he actually feels much better when he is at work, and doesn't really have any pain or difficulty until he gets home and attempts to un-weight his leg. At work, pt uses a crew-cut sock pulled up to provide warmth and mild compression, which he reports helps him feel a lot better. Pt notes that he is doing quite a bit better than he was originally, but it still bothers him on a daily basis. PT-OP-C Subjective Start: 06/13/20 17:31 Freq: Status: Active Protocol: Document 07/30/20 16:45 DCW (Rec: 07/30/20 17:37 DCW [id number]) OP-PT Subjective Patient Comments Patient Comments Pt note he is a little better . It's confusing, sometimes theres a little pain, just a tingle, sometimes theres nothing. PT-OP-F Manual Assessment Start: 06/13/20 17:31 Freq: Status: Active Protocol: Document 06/13/20 16:40 DCW (Rec: 06/14/20 10:04 DCW [id number]) Manual Assessments Soft Tissue Assessment Soft Tissue Mobility Assessment Tenderness to palpation 2/4: Pain with wincing deep along medial edge of left tibia, noticeable absence of muscle mass in small area along same location. Additionally, pt complaints if tenderness along left Achilles tendon and insertion. PT-OP-L Special Tests Start: 06/13/20 17:31 Freq: Status: Active Protocol: Document 06/13/20 16:40 DCW (Rec: 06/14/20 10:04 DCW [id number]) Special Tests Foot/Ankle Special Tests Talor Tilt Test Results Negative Post Tibiotalor Subluxation Test Results Negative Anterior Draw Test Results Negative PT-OP-M Strength Start: 06/13/20 17:31 Freq: Status: Active Protocol: Document 06/13/20 16:40 DCW (Rec: 06/14/20 10:04 DCW [id number]) Ankle/Foot Strength Ankle and Foot Manual Muscle Testing Left Dorsiflexion (L4) 5 Normal Plantarflexion (S1) 4+ Good+ Inversion 4+ Good+ Eversion (S1) 5 Normal PT-OP-Q Treatments Start: 06/13/20 17:31 Freq: Status: Active Protocol: Document 07/30/20 16:45 DCW (Rec: 07/30/20 17:37 DCW [id number]) Gym Equipment Shuttle Recovery Bilateral Heel Raises Resistance 75# Shuttle Balance Red Details Ankle DF/PF Therapeutic Exercises Standing Exercises 3 Standing Exercise Name SLS Side left Equipment Used BOSU 1 Standing Exercise Name Gastroc stretch Side bilateral Equipment Used ANN Manual Therapy Treatment Soft Tissue Mobilization 1 Body Location L medial calf Mobilization Type Strumming,Sustained Pressure Intensity/Depth Moderate Body Position Prone PT-OP-R Modalities Start: 06/13/20 17:31 Freq: Status: Active Protocol: Document 07/30/20 16:45 DCW (Rec: 07/30/20 17:37 DCW [id number]) Ultrasound Therapy Treatment Left Lower Medial Leg Treatment Duration (minutes) 10 Patient Position Prone Coupling Medium Ultrasound Gel Frequency Setting (mHz) 1 Mode Setting Continuous Duty Cycle 100% Intensity Setting (w/cm2) 1.2 PT-OP-T Assessment and Plan Start: 06/13/20 17:31 Freq: Status: Active Protocol: Document 07/30/20 16:45 DCW (Rec: 07/30/20 17:37 DCW [id number]) Physical Therapy Assessment Impairments Impairments Activity Tolerance,Pain,Soft Tissue Mobility,Tone Goals Two Impairment Pt experiences increased pain and numbness in leg during rest Fpc Goal (LTG) Pt to report no increased pain after work upon removing sock from leg. LTG Duration 08/11/20 One Impairment Pt does not have an appropriate home exercise program Short Term Goal (STG) Pt to be independent and compliant with an appropriate HEP STG Duration 07/14/20 Assessment Summary Assessment Pt still getting occasional pain which varies in severity from brief discomfort to actual pain. Physical Therapy Plan Frequency and Duration Frequency of Treatment 2x/Week Duration of Treatment Two months Plan of Care Start Date 06/13/20 Plan of Care End Date 08/11/20 Therapeutic Interventions Therapeutic Interventions Home Exercise Program,Joint Mobilizations,Manual Therapy, Patient/Caregiver Education, Self-Care/Home Management,Soft Tissue Mobilization, Therapeutic Exercises Modalities Cold Pack/Ice Massage,Electric Stimulation,Hot Packs, Ultrasound Next Visit Focus/Plan Next Note Type Treatment Note Next Visit Plan STM and modalities to calf to promote healing, gentle strengthening as tolerated
--- NOTE | 2020-08-06 17:48 | PT.OTN ---
Current Diagnoses Pain in left lower leg (08/06/20) Other injury of other muscle(s) and tendon(s) of posterior muscle group at lower leg level, unspecified leg, initial encounter (08/06/20) Other injury of other muscle(s) and tendon(s) of posterior muscle group at lower leg level, unspecified leg, subsequent encounter (08/06/20) Physical Therapy Treatment Note PT-OP-A Visit Information Start: 06/13/20 17:31 Freq: Status: Active Protocol: Document 08/06/20 16:45 DCW (Rec: 08/06/20 17:48 DCW [id number]) Out-Patient Physical Therapy Visit Information Visit Information Visit Type Treatment Note Visit Note Pt and mobility developer attend 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 Visit Start Time 16:45 Visit Stop Time 17:25 Total Visit Minutes 40 Visit Number 10 Number of TANBARK PEELER Visits 0 Evaluation Information Evaluation Date 06/13/20 PT-OP-B Current Condition Start: 06/13/20 17:31 Freq: Status: Active Protocol: Document 06/13/20 16:40 DCW (Rec: 06/13/20 17:52 DCW [id number]) Current Condition History of Current Condition Onset Date 04/07/2020 Current Complaints L leg pain, numbness, cramping History of Current Condition Pt is a 39 year old male Occitan speaker here with an mobility developer presenting today with complaints of pain, numbness, and cramping in his left calf. Pt injured his leg at work on 04/07/2020. 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 When he climbed down off the forklift, he heard a pop and felt immediate pain in his calf. Pt notes he took two weeks off from work, and has since returned to work. Admits that he actually feels much better when he is at work, and doesn't really have any pain or difficulty until he gets home and attempts to un-weight his leg. At work, pt uses a crew-cut sock pulled up to provide warmth and mild compression, which he reports helps him feel a lot better. Pt notes that he is doing quite a bit better than he was originally, but it still bothers him on a daily basis. PT-OP-C Subjective Start: 06/13/20 17:31 Freq: Status: Active Protocol: Document 08/06/20 16:45 DCW (Rec: 08/06/20 17:48 DCW [id number]) OP-PT Subjective Patient Comments Patient Comments Little by little getting better. PT-OP-F Manual Assessment Start: 06/13/20 17:31 Freq: Status: Active Protocol: Document 06/13/20 16:40 DCW (Rec: 06/14/20 10:04 DCW [id number]) Manual Assessments Soft Tissue Assessment Soft Tissue Mobility Assessment Tenderness to palpation 2/4: Pain with wincing deep along medial edge of left tibia, noticeable absence of muscle mass in small area along same location. Additionally, pt complaints if tenderness along left Achilles tendon and insertion. PT-OP-L Special Tests Start: 06/13/20 17:31 Freq: Status: Active Protocol: Document 06/13/20 16:40 DCW (Rec: 06/14/20 10:04 DCW [id number]) Special Tests Foot/Ankle Special Tests Talor Tilt Test Results Negative Post Tibiotalor Subluxation Test Results Negative Anterior Draw Test Results Negative PT-OP-M Strength Start: 06/13/20 17:31 Freq: Status: Active Protocol: Document 06/13/20 16:40 DCW (Rec: 06/14/20 10:04 DCW [id number]) Ankle/Foot Strength Ankle and Foot Manual Muscle Testing Left Dorsiflexion (L4) 5 Normal Plantarflexion (S1) 4+ Good+ Inversion 4+ Good+ Eversion (S1) 5 Normal PT-OP-Q Treatments Start: 06/13/20 17:31 Freq: Status: Active Protocol: Document 08/06/20 16:45 DCW (Rec: 08/06/20 17:48 DCW [id number]) Gym Equipment Shuttle Recovery Bilateral Heel Raises Resistance 75# Shuttle Balance Red Details Ankle DF/PF Therapeutic Exercises Standing Exercises 3 Standing Exercise Name SLS Side left Equipment Used BOSU 1 Standing Exercise Name Gastroc stretch Side bilateral Equipment Used ANN Manual Therapy Treatment Soft Tissue Mobilization 1 Body Location L medial calf Mobilization Type Strumming,Sustained Pressure Intensity/Depth Moderate Body Position Prone PT-OP-R Modalities Start: 06/13/20 17:31 Freq: Status: Active Protocol: Document 08/06/20 16:45 DCW (Rec: 08/06/20 17:48 DCW [id number]) Ultrasound Therapy Treatment Left Lower Medial Leg Treatment Duration (minutes) 10 Patient Position Prone Coupling Medium Ultrasound Gel Frequency Setting (mHz) 1 Mode Setting Continuous Duty Cycle 100% Intensity Setting (w/cm2) 1.2 PT-OP-T Assessment and Plan Start: 06/13/20 17:31 Freq: Status: Active Protocol: Document 08/06/20 16:45 DCW (Rec: 08/06/20 17:48 DCW [id number]) Physical Therapy Assessment Impairments Impairments Activity Tolerance,Pain,Soft Tissue Mobility,Tone Goals Two Impairment Pt experiences increased pain and numbness in leg during rest Longterm Goal (LTG) Pt to report no increased pain after work upon removing sock from leg. LTG Duration 08/11/20 One Impairment Pt does not have an appropriate home exercise program Short Term Goal (STG) Pt to be independent and compliant with an appropriate HEP STG Duration 07/14/20 Assessment Summary Assessment Continues to make good overall progress, still having some mild occasional pain. Physical Therapy Plan Frequency and Duration Frequency of Treatment 2x/Week Duration of Treatment Two months Plan of Care Start Date 06/13/20 Plan of Care End Date 08/11/20 Therapeutic Interventions Therapeutic Interventions Home Exercise Program,Joint Mobilizations,Manual Therapy, Patient/Caregiver Education, Self-Care/Home Management,Soft Tissue Mobilization, Therapeutic Exercises Modalities Cold Pack/Ice Massage,Electric Stimulation,Hot Packs, Ultrasound Next Visit Focus/Plan Next Note Type Progress Note Next Visit Plan STM and modalities to calf to promote healing, gentle strengthening as tolerated
--- NOTE | 2020-08-09 17:42 | PT.OTN ---
Current Diagnoses Pain in left lower leg (08/09/20) Other injury of other muscle(s) and tendon(s) of posterior muscle group at lower leg level, unspecified leg, initial encounter (08/09/20) Other injury of other muscle(s) and tendon(s) of posterior muscle group at lower leg level, unspecified leg, subsequent encounter (08/09/20) Physical Therapy Treatment Note PT-OP-A Visit Information Start: 06/13/20 17:31 Freq: Status: Active Protocol: Document 08/09/20 16:45 DCW (Rec: 08/09/20 17:39 DCW [id number]) Out-Patient Physical Therapy Visit Information Visit Information Visit Type Treatment Note Visit Note Pt and body specialist attend 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 Visit Start Time 16:45 Visit Stop Time 17:25 Total Visit Minutes 40 Visit Number 11 Number of HAND FABRIC CUTTER Visits 0 Evaluation Information Evaluation Date 06/13/20 PT-OP-B Current Condition Start: 06/13/20 17:31 Freq: Status: Active Protocol: Document 06/13/20 16:40 DCW (Rec: 06/13/20 17:52 DCW [id number]) Current Condition History of Current Condition Onset Date 04/07/2020 Current Complaints L leg pain, numbness, cramping History of Current Condition Pt is a 39 year old male Bulgarian speaker here with an body specialist presenting today with complaints of pain, numbness, and cramping in his left calf. Pt injured his leg at work on 04/07/2020. 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 When he climbed down off the forklift, he heard a pop and felt immediate pain in his calf. Pt notes he took two weeks off from work, and has since returned to work. Admits that he actually feels much better when he is at work, and doesn't really have any pain or difficulty until he gets home and attempts to un-weight his leg. At work, pt uses a crew-cut sock pulled up to provide warmth and mild compression, which he reports helps him feel a lot better. Pt notes that he is doing quite a bit better than he was originally, but it still bothers him on a daily basis. PT-OP-C Subjective Start: 06/13/20 17:31 Freq: Status: Active Protocol: Document 08/09/20 16:45 DCW (Rec: 08/09/20 17:39 DCW [id number]) OP-PT Subjective Patient Comments Patient Comments Pain is still coming and star the medial calf pain is more frequent, but he experiences medial ankle pain after work most of the time. PT-OP-F Manual Assessment Start: 06/13/20 17:31 Freq: Status: Active Protocol: Document 08/09/20 16:45 DCW (Rec: 08/09/20 17:40 DCW [id number]) Manual Assessments Soft Tissue Assessment Soft Tissue Mobility Assessment Tenderness to palpation 2/4: Pain with wincing deep along medial edge of left tibia. Additionally, pt complaints if tenderness along left Achilles tendon and insertion. PT-OP-L Special Tests Start: 06/13/20 17:31 Freq: Status: Active Protocol: Document 06/13/20 16:40 DCW (Rec: 06/14/20 10:04 DCW [id number]) Special Tests Foot/Ankle Special Tests Talor Tilt Test Results Negative Post Tibiotalor Subluxation Test Results Negative Anterior Draw Test Results Negative PT-OP-M Strength Start: 06/13/20 17:31 Freq: Status: Active Protocol: Document 08/09/20 16:45 DCW (Rec: 08/09/20 17:40 DCW [id number]) Ankle/Foot Strength Ankle and Foot Manual Muscle Testing Left Dorsiflexion (L4) 5 Normal Plantarflexion (S1) 4+ Good+ Inversion 4+ Good+ Eversion (S1) 5 Normal PT-OP-Q Treatments Start: 06/13/20 17:31 Freq: Status: Active Protocol: Document 08/09/20 16:45 DCW (Rec: 08/09/20 17:39 DCW [id number]) Manual Therapy Treatment Soft Tissue Mobilization 1 Body Location L medial calf Mobilization Type Strumming,Sustained Pressure Intensity/Depth Moderate Body Position Prone Taping 1 Body Location Y-strip Medial ankle up medial calf Type of Tape Kinesio Tape PT-OP-R Modalities Start: 06/13/20 17:31 Freq: Status: Active Protocol: Document 08/09/20 16:45 DCW (Rec: 08/09/20 17:39 DCW [id number]) Ultrasound Therapy Treatment Left Lower Medial Leg Treatment Duration (minutes) 10 Patient Position Prone Coupling Medium Ultrasound Gel Frequency Setting (mHz) 1 Mode Setting Continuous Duty Cycle 100% Intensity Setting (w/cm2) 1.2 PT-OP-T Assessment and Plan Start: 06/13/20 17:31 Freq: Status: Active Protocol: Document 08/09/20 16:45 DCW (Rec: 08/09/20 17:39 DCW [id number]) Physical Therapy Assessment Impairments Impairments Activity Tolerance,Pain,Soft Tissue Mobility,Tone Goals Two Impairment Pt experiences increased pain and numbness in leg during rest Front Line Leader Goal (LTG) Pt to report no increased pain after work upon removing sock from leg. LTG Duration 08/11/20 One Impairment Pt does not have an appropriate home exercise program Short Term Goal (STG) Pt to be independent and compliant with an appropriate HEP STG Duration 07/14/20 Assessment Summary Assessment Increased calf tone today vs last few visits, admits he had to perform a lot more crouching/squatting at work that usual yesterday, and that seemed to flare him up. Overall, pt doing well, more skilled PT recommended to continue to reduce overall gastroc tone and improve pt tolerance to work. Physical Therapy Plan Frequency and Duration Frequency of Treatment 2x/Week Duration of Treatment Two months Plan of Care Start Date 08/09/20 Plan of Care End Date 10/09/20 Therapeutic Interventions Therapeutic Interventions Home Exercise Program,Joint Mobilizations,Manual Therapy, Patient/Caregiver Education, Self-Care/Home Management,Soft Tissue Mobilization, Therapeutic Exercises Modalities Cold Pack/Ice Massage,Electric Stimulation,Hot Packs, Ultrasound Next Visit Focus/Plan Next Note Type Treatment Note Next Visit Plan STM and modalities to calf to promote healing, gentle strengthening as tolerated
--- NOTE | 2020-08-09 17:43 | PT.OPPOC ---
Physical, Occupational & Speech Therapy At [facility] Current Diagnoses Pain in left lower leg (08/09/20) Other injury of other muscle(s) and tendon(s) of posterior muscle group at lower leg level, unspecified leg, initial encounter (08/09/20) Other injury of other muscle(s) and tendon(s) of posterior muscle group at lower leg level, unspecified leg, subsequent encounter (08/09/20) Visit Care Team Role Provider Type Maranda Mcgowan PA-C Referring Provider Advanced Bottled Beverage Inspector Specialty: [facility] Address: [address] [place] [address], [id number] Email: [email or web address] Yvon Zhang MD Attending Provider Non-Staff Primary Care Provider Specialty: Physical Medicine and Rehab Address: [address] [place] [address], [id number] Email: Plan Of Care PT-OP-T Assessment and Plan Start: 06/13/20 17:31 Freq: Status: Active Protocol: Document 08/09/20 16:45 DCW (Rec: 08/09/20 17:39 DCW [id number]) Physical Therapy Assessment Impairments Impairments Activity Tolerance,Pain,Soft Tissue Mobility,Tone Goals Two Impairment Pt experiences increased pain and numbness in leg during rest [facility] Goal (LTG) Pt to report no increased pain after work upon removing sock from leg. LTG Duration 08/11/20 One Impairment Pt does not have an appropriate home exercise program Short Term Goal (STG) Pt to be independent and compliant with an appropriate HEP STG Duration 07/14/20 Assessment Summary Assessment Increased calf tone today vs last few visits, admits he had to perform a lot more crouching/squatting at work that usual yesterday, and that seemed to flare him up. Overall, pt doing well, more skilled PT recommended to continue to reduce overall gastroc tone and improve pt tolerance to work. Physical Therapy Plan Frequency and Duration Frequency of Treatment 2x/Week Duration of Treatment Two months Plan of Care Start Date 08/09/20 Plan of Care End Date 10/09/20 Therapeutic Interventions Therapeutic Interventions Home Exercise Program,Joint Mobilizations,Manual Therapy, Patient/Caregiver Education, Self-Care/Home Management,Soft Tissue Mobilization, Therapeutic Exercises Modalities Cold Pack/Ice Massage,Electric Stimulation,Hot Packs, Ultrasound Next Visit Focus/Plan Next Note Type Treatment Note Next Visit Plan STM and modalities to calf to promote healing, gentle strengthening as tolerated Plan of Care Dates Plan of Care Start Date 08/09/20 Plan of Care End Date 10/09/20 Electronically Signed by: Kirill Mccarthy, PT 08/09/20 1915 Please Sign and Return: I have reviewed this Plan of Care and certify that the skilled therapy services above are required to meet the patient?s needs. Physician Signature Date Printed Name and Credentials Clinical Instructor Signature Printed Name and Credentials
--- NOTE | 2020-08-13 17:35 | PT.OTN ---
Current Diagnoses Pain in left lower leg (08/13/20) Other injury of other muscle(s) and tendon(s) of posterior muscle group at lower leg level, unspecified leg, initial encounter (08/13/20) Other injury of other muscle(s) and tendon(s) of posterior muscle group at lower leg level, unspecified leg, subsequent encounter (08/13/20) Physical Therapy Treatment Note PT-OP-A Visit Information Start: 06/13/20 17:31 Freq: Status: Active Protocol: Document 08/13/20 16:45 DCW (Rec: 08/13/20 17:35 DCW [id number]) Out-Patient Physical Therapy Visit Information Visit Information Visit Type Treatment Note Visit Note Pt and navy senior officer attend 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 Pt injured his leg at work on 04/07/2020. 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 When he climbed down off the forklift, he heard a pop and felt immediate pain in his calf. Pt notes he took two weeks off from work, and has since returned to work. Admits that he actually feels much better when he is at work, and doesn't really have any pain or difficulty until he gets home and attempts to un-weight his leg. At work, pt uses a crew-cut sock pulled up to provide warmth and mild compression, which he reports helps him feel a lot better. Pt notes that he is doing quite a bit better than he was originally, but it still bothers him on a daily basis. PT-OP-C Subjective Start: 06/13/20 17:31 Freq: Status: Active Protocol: Document 08/13/20 16:45 DCW (Rec: 08/13/20 17:35 DCW [id number]) OP-PT Subjective Patient Comments Patient Comments Pt still wearing tape from last week, notes it has been better with the tape. Notes he was originally told he could not go more than twelve visits without returning to his referring physician, so he is hesitent to attend any further visits until he speaks with his tour driver and L&I. PT-OP-F Manual Assessment Start: 06/13/20 17:31 Freq: Status: Active Protocol: Document 08/09/20 16:45 DCW (Rec: 08/09/20 17:40 DCW [id number]) Manual Assessments Soft Tissue Assessment Soft Tissue Mobility Assessment Tenderness to palpation 2/4: Pain with wincing deep along medial edge of left tibia. Additionally, pt complaints if tenderness along left Achilles tendon and insertion. PT-OP-L Special Tests Start: 06/13/20 17:31 Freq: Status: Active Protocol: Document 06/13/20 16:40 DCW (Rec: 06/14/20 10:04 DCW [id number]) Special Tests Foot/Ankle Special Tests Talor Tilt Test Results Negative Post Tibiotalor Subluxation Test Results Negative Anterior Draw Test Results Negative PT-OP-M Strength Start: 06/13/20 17:31 Freq: Status: Active Protocol: Document 08/09/20 16:45 DCW (Rec: 08/09/20 17:40 DCW [id number]) Ankle/Foot Strength Ankle and Foot Manual Muscle Testing Left Dorsiflexion (L4) 5 Normal Plantarflexion (S1) 4+ Good+ Inversion 4+ Good+ Eversion (S1) 5 Normal PT-OP-Q Treatments Start: 06/13/20 17:31 Freq: Status: Active Protocol: Document 08/13/20 16:45 DCW (Rec: 08/13/20 17:35 DCW [id number]) Gym Equipment Shuttle Balance Red Details Ankle DF/PF Therapeutic Exercises Standing Exercises 3 Standing Exercise Name SLS Side left 2 Standing Exercise Name Heel raises 1 Standing Exercise Name Gastroc stretch Side bilateral Equipment Used ANN Manual Therapy Treatment Soft Tissue Mobilization 1 Body Location L medial calf Mobilization Type Strumming,Sustained Pressure Intensity/Depth Moderate Body Position Prone PT-OP-R Modalities Start: 06/13/20 17:31 Freq: Status: Active Protocol: Document 08/13/20 16:45 DCW (Rec: 08/13/20 17:35 DCW [id number]) Ultrasound Therapy Treatment Left Lower Medial Leg Treatment Duration (minutes) 10 Patient Position Prone Coupling Medium Ultrasound Gel Frequency Setting (mHz) 1 Mode Setting Continuous Duty Cycle 100% Intensity Setting (w/cm2) 1.2 PT-OP-T Assessment and Plan Start: 06/13/20 17:31 Freq: Status: Active Protocol: Document 08/13/20 16:45 DCW (Rec: 08/13/20 17:35 DCW [id number]) Physical Therapy Assessment Impairments Impairments Activity Tolerance,Pain,Soft Tissue Mobility,Tone Goals Two Impairment Pt experiences increased pain and numbness in leg during rest Transmission Tester Goal (LTG) Pt to report no increased pain after work upon removing sock from leg. LTG Duration 08/11/20 One Impairment Pt does not have an appropriate home exercise program Short Term Goal (STG) Pt to be independent and compliant with an appropriate HEP STG Duration 07/14/20 Assessment Summary Assessment Pt prefers to return to PCP or speak with L&I prior to returning for more therapy. Physical Therapy Plan Frequency and Duration Frequency of Treatment 2x/Week Duration of Treatment Two months Plan of Care Start Date 08/09/20 Plan of Care End Date 10/09/20 Therapeutic Interventions Therapeutic Interventions Home Exercise Program,Joint Mobilizations,Manual Therapy, Patient/Caregiver Education, Self-Care/Home Management,Soft Tissue Mobilization, Therapeutic Exercises Modalities Cold Pack/Ice Massage,Electric Stimulation,Hot Packs, Ultrasound Next Visit Focus/Plan Next Note Type Treatment Note Next Visit Plan STM and modalities to calf to promote healing, gentle strengthening as tolerated
--- NOTE | 2020-08-29 15:02 | PT.OPDS ---
Current Diagnoses Pain in left lower leg (08/13/20) Other injury of other muscle(s) and tendon(s) of posterior muscle group at lower leg level, unspecified leg, initial encounter (08/13/20) Other injury of other muscle(s) and tendon(s) of posterior muscle group at lower leg level, unspecified leg, subsequent encounter (08/13/20) Visit Care Team Role Provider Type Maranda Mcgowan PA-C Referring Provider Advanced Newspaper Stuffer Specialty: [facility] Address: [address] [place] [address], [id number] Email: [email or web address] Yvon Zhang MD Attending Provider Non-Staff Primary Care Provider Specialty: Physical Medicine and Rehab Address: [address] [place] [address], [address] Email: Visit Number Visit Number 12 Discharge Summary PT-OP-B Current Condition Start: 06/13/20 17:31 Freq: Status: Active Protocol: Document 06/13/20 16:40 DCW (Rec: 06/13/20 17:52 DCW [id number]) Current Condition History of Current Condition Onset Date 04/07/2020 Current Complaints L leg pain, numbness, cramping History of Current Condition Pt is 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 Pt injured his leg at work on 04/07/2020. 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 When he climbed down off the forklift, he heard a pop and felt immediate pain in his calf. Pt notes he took two weeks off from work, and has since returned to work. Admits that he actually feels much better when he is at work, and doesn't really have any pain or difficulty until he gets home and attempts to un-weight his leg. At work, pt uses a crew-cut sock pulled up to provide warmth and mild compression, which he reports helps him feel a lot better. Pt notes that he is doing quite a bit better than he was originally, but it still bothers him on a daily basis. PT-OP-C Subjective Start: 06/13/20 17:31 Freq: Status: Active Protocol: Document 08/13/20 16:45 DCW (Rec: 08/13/20 17:35 DCW [id number]) OP-PT Subjective Patient Comments Patient Comments Pt still wearing tape from last week, notes it has been better with the tape. Notes he was originally told he could not go more than twelve visits without returning to his referring physician, so he is hesitent to attend any further visits until he speaks with his sow manager and L&I. PT-OP-F Manual Assessment Start: 06/13/20 17:31 Freq: Status: Active Protocol: Document 08/09/20 16:45 DCW (Rec: 08/09/20 17:40 DCW [id number]) Manual Assessments Soft Tissue Assessment Soft Tissue Mobility Assessment Tenderness to palpation 2/4: Pain with wincing deep along medial edge of left tibia. Additionally, pt complaints if tenderness along left Achilles tendon and insertion. PT-OP-L Special Tests Start: 06/13/20 17:31 Freq: Status: Active Protocol: Document 06/13/20 16:40 DCW (Rec: 06/14/20 10:04 DCW [id number]) Special Tests Foot/Ankle Special Tests Talor Tilt Test Results Negative Post Tibiotalor Subluxation Test Results Negative Anterior Draw Test Results Negative PT-OP-M Strength Start: 06/13/20 17:31 Freq: Status: Active Protocol: Document 08/09/20 16:45 DCW (Rec: 08/09/20 17:40 DCW [id number]) Ankle/Foot Strength Ankle and Foot Manual Muscle Testing Left Dorsiflexion (L4) 5 Normal Plantarflexion (S1) 4+ Good+ Inversion 4+ Good+ Eversion (S1) 5 Normal PT-OP-T Assessment and Plan Start: 06/13/20 17:31 Freq: Status: Active Protocol: Document 08/29/20 15:00 DCW (Rec: 08/29/20 15:02 DCW [id number]) Physical Therapy Assessment Assessment Summary Assessment Per 08/27/[address] Zhang, pt has reached maximum medical improvement and no further PT will be authorized. Pt will be discharged from skilled therapy at this time. Physical Therapy Plan Discharge Physical Therapy Discharge Reasons No Longer Attending PT
== END 2020-08-31 08:59 ==
LOC: PHYS 16:45
PROVIDERS: PCP Preventive Medicine Public Health & General Preventive Medicine; Referring Provider Physician Assistant; Visit Provider Preventive Medicine Public Health & General Preventive Medicine
DX: S86.19 Other injury of other muscle(s) and tendon(s) of posterior muscle group at lower leg level (principal); M79.662 Pain in left lower leg
CPT/HCPCS: 97035; 97110; 97140; 97161

== ENCOUNTER → 2021-07-23 12:46 | Outpatient (CLI) | payer OTHER, SELFPAY ==
--- NOTE | 2021-07-23 | DI.RAD.S_ITS ---
PROCEDURE: FL SHOULDER INJECTION MR/CT LT INDICATIONS: Superior glenoid lesion of left shoulder COMPARISON: None. TECHNIQUE: The indications, alternatives, benefits, risks, and complications of the procedure were explained to the patient. Written informed consent was obtained and placed in the chart. The shoulder was examined fluoroscopically and a site for needle placement chosen for entry into the glenohumeral joint from an anterior approach. The skin was prepped and draped in a sterile fashion, and 1% lidocaine infiltrated from skin down to joint capsule. A spinal needle was inserted into the glenohumeral joint, and a small amount of iodinated contrast media injected to confirm intra-articular placement of the needle tip. This was followed by approximately 12 mL dilute solution of a gadolinium containing MR contrast agent. The needle was removed and a dressing was applied. The patient was given postprocedural instructions and sent to the MR suite for MR imaging. FINDINGS: A single fluoroscopic spot image demonstrates intra-articular location of injected iodinated contrast. IMPRESSION: Successful fluoroscopically guided administration of dilute Gadolinium solution into the shoulder joint for MR arthrogram. Dictated by: Julieta Garvey MD, PhD on 07/23/2021 at 16:46 Approved by: Julieta Garvey MD, PhD on 07/23/2021 at 16:46
--- NOTE | 2021-07-23 | DI.MRI.S_ITS ---
PROCEDURE: MR SHOULDER LT W CON INDICATIONS: Superior glenoid lesion of left shoulder TECHNIQUE: After the administration of 12 mL of dilute intra-articular Gadolinium contrast, oblique coronal T1 and T2 spin echo with fat saturation, oblique sagittal T1 spin echo with and without fat saturation, oblique sagittal T2 fast spin echo with fat saturation, axial T1 spin echo with fat saturation through the shoulder. COMPARISON: None. FINDINGS: Image quality: Excellent. Rotator cuff: There is mild T2 signal elevation throughout the supraspinatus and infraspinatus tendons at the humeral insertion sites extending the musculotendinous junctions, indicating tendinopathy. There is a focal full-thickness pinhole tear of the upper subscapularis tendon at the humeral insertion site extending to the musculotendinous junction. Teres minor tendon is intact. The supraspinatus, infraspinatus, and subscapularis tendons appear intact throughout. No rotator cuff muscle atrophy on sagittal images. Bones and bursae: No bone marrow contusions or fractures. Mild acromioclavicular joint degeneration. The acromion demonstrates conventional anatomy, without an os acromiale. Small amount of contrast extends into the subacromial bursa. Capsule and soft tissues: The labrum and glenohumeral ligaments appear intact. The long head of the biceps tendon demonstrates low-grade T2 signal elevation within its substance. The rotator interval appears normal, without fibrosis. The coracohumeral ligament is of normal thickness. No intra-articular bodies. IMPRESSION: 1. Small full-thickness pinhole tear of the upper subscapularis tendon. 2. Supraspinatus and infraspinatus tendinopathy without evidence of superimposed tearing. 3. Acromioclavicular joint osteoarthritis. 4. Partial thickness biceps tendon tear. Dictated by: Adri Garcia M.D. on 07/23/2021 at 14:38 Approved by: Adri Garcia M.D. on 07/23/2021 at 16:55
== END ==
PROVIDERS: PCP Preventive Medicine Public Health & General Preventive Medicine; Referring Provider Preventive Medicine Occupational Medicine; Visit Provider Preventive Medicine Occupational Medicine
DX: S43.432D Superior glenoid labrum lesion of left shoulder, subsequent encounter (principal); M19.012 Primary osteoarthritis, left shoulder; S46.012A Strain of muscle(s) and tendon(s) of the rotator cuff of left shoulder, initial encounter; S46.112A Strain of muscle, fascia and tendon of long head of biceps, left arm, initial encounter
CPT/HCPCS: 23350; 73222; 77002

== ENCOUNTER → 2022-11-28 13:40 | Outpatient (CLI) | payer OTHER, SELFPAY ==
--- NOTE | 2022-11-28 | DI.MRI.S_ITS ---
PROCEDURE: MR CERVICAL SPINE WO CON INDICATIONS: Strain of muscle, fascia and tendon at neck level, initial e TECHNIQUE: Noncontrast sagittal T1 spin echo and T2 fast spin echo, sagittal STIR, foraminal oblique sagittal T2 fast spin echo, and axial gradient echo or T2 fast spin echo through the cervical spine. COMPARISON: [facility] MR, MR CERVICAL SPINE WITHOUT CONTRAST, 06/25/2021, 9:34. FINDINGS: Image quality: Excellent. Alignment and Curvature: There is loss of normal cervical lordosis. 2 mm of retrolisthesis of C3 on C4 and C5 on C6. Bone Marrow: Marrow demonstrates normal overall signal. There is mild reactive signal throughout the endplates of the cervical and upper thoracic spine. Spinal Cord: Visualized spinal cord has normal size and signal. No cerebellar tonsillar herniation. Paraspinous Soft Tissues: No paravertebral masses. Prevertebral soft tissues are normal in thickness. C2-C3: Mild disc desiccation. No significant canal nor foraminal stenosis. C3-C4: Mild disc desiccation and diffuse disc bulge. Mild facet and uncovertebral hypertrophy bilaterally. Mild canal stenosis. Moderate right and mild left foraminal stenosis. No significant change. C4-C5: Mild disc desiccation and diffuse disc bulge. Mild facet and uncovertebral hypertrophy bilaterally. Mild canal stenosis. Moderate left and mild right foraminal stenosis. No significant change. C5-C6: Mild disc desiccation and diffuse disc bulge with superimposed right paracentral protrusion. Mild facet and uncovertebral hypertrophy bilaterally. Severe canal stenosis. Mild cord flattening. Mild bilateral foraminal stenosis. No significant change. C6-C7: Mild disc desiccation and diffuse disc bulge with superimposed right paracentral protrusion. Mild facet and uncovertebral hypertrophy. Moderate canal stenosis. Mild bilateral foraminal stenosis. C7-T1: Normal appearance. IMPRESSION: 1. Multilevel degenerative disc and facet disease, as well as uncovertebral hypertrophy. 2. Multilevel canal stenoses, worst at C5-C6 where there is mild cord flattening. 3. Multilevel mild to moderate foraminal stenosis as above. Dictated by: Adri Garcia M.D. on 11/28/2022 at 15:01 Transcribed by: BEN on 11/28/2022 at 15:04 Approved by: Adri Garcia M.D. on 11/28/2022 at 16:49
== END ==
PROVIDERS: PCP Preventive Medicine Public Health & General Preventive Medicine; Referring Provider Preventive Medicine Occupational Medicine; Visit Provider Preventive Medicine Occupational Medicine
DX: S16.1XXA Strain of muscle, fascia and tendon at neck level, initial encounter (principal); M50.31 Other cervical disc degeneration, high cervical region; M47.812 Spondylosis without myelopathy or radiculopathy, cervical region; M48.02 Spinal stenosis, cervical region; X58.XXXA Exposure to other specified factors, initial encounter
CPT/HCPCS: 72141

== ENCOUNTER → 2023-07-10 11:10 | Outpatient (CLI) | payer OTHER, SELFPAY ==
--- NOTE | 2023-07-10 | DI.RAD.S_ITS ---
PROCEDURE: FL SHOULDER INJECTION MR/CT LT INDICATIONS: SHOULDER PAIN COMPARISON: [facility], CR, XR SHOULDER 2+ VIEWS LEFT, 10/13/2022, 10:41. TECHNIQUE: The indications, alternatives, benefits, risks, and complications of the procedure were explained to the patient. Written informed consent was obtained and placed in the chart. The shoulder was examined fluoroscopically and a site for needle placement chosen for entry into the glenohumeral joint from an anterior approach. The skin was prepped and draped in a sterile fashion, and 1% lidocaine infiltrated from skin down to joint capsule. A spinal needle was inserted into the glenohumeral joint, and a small amount of iodinated contrast media injected to confirm intra-articular placement of the needle tip. This was followed by approximately 12 mL dilute solution of a gadolinium containing MR contrast agent. The needle was removed and a dressing was applied. The patient was given postprocedural instructions and sent to the MR suite for MR imaging. FINDINGS: A single fluoroscopic spot image demonstrates intra-articular location of injected iodinated contrast. IMPRESSION: Successful fluoroscopically guided administration of dilute Gadolinium solution into the shoulder joint for MR arthrogram. Dictated by: Nando Morales M.D. on 07/10/2023 at 11:57 Approved by: Nando Morales M.D. on 07/10/2023 at 11:57
--- NOTE | 2023-07-10 | DI.MRI.S_ITS ---
PROCEDURE: MR SHOULDER LT W CON INDICATIONS: SHOULDER PAIN TECHNIQUE: After the administration of 12 mL of dilute intra-articular Gadolinium contrast, oblique coronal T1 and T2 spin echo with fat saturation, oblique sagittal T1 spin echo with and without fat saturation, oblique sagittal T2 fast spin echo with fat saturation, axial T1 spin echo with fat saturation through the shoulder. COMPARISON: [facility], MR, MR SHOULDER LT W CON, 07/23/2021, 13:39. FINDINGS: Image quality: Excellent. Rotator cuff: Low-grade articular and bursal surface partial thickness tear involving distal supraspinatus at its insertion on the humeral head is seen extending to musculotendinous junction. Distal infraspinatus and subscapularis tendinosis is seen. No full-thickness rotator cuff tendon rupture. No rotator cuff muscle atrophy on sagittal images. Bones and bursae: No bone marrow contusions or fractures. Mild acromioclavicular joint osteoarthritic changes are seen with joint space narrowing and downward osteophyte formation depressing the musculotendinous junction of supraspinatus. The acromion demonstrates conventional anatomy, without an os acromiale. Capsule and soft tissues: There is fraying of superior anterior labrum with contrast extension at 12 to 2 o'clock position suggestive of subtle superior anterior labral tear.. The long head of the biceps tendon demonstrates normal location and morphology. The rotator interval appears normal, without fibrosis. The coracohumeral ligament is of normal thickness. No intra-articular bodies. IMPRESSION: 1. Low-grade articular and bursal surface partial thickness tear involving distal supraspinatus extending to musculotendinous junction. Distal infraspinatus and subscapularis tendinosis. No full-thickness rotator cuff tendon rupture. 2. Mild acromioclavicular joint osteoarthritis. No fracture or dislocation. No gross intra-articular loose bodies. 3. Suggestion of superior anterior labral tear at 12 to 2 o'clock position. Dictated by: Roly Colon M.D. on 07/10/2023 at 14:26 Approved by: Roly Colon M.D. on 07/10/2023 at 14:35
[2023-07-10] MEDS: SODIUM CHLORIDE 0.9 % 20 ML VIAL IV (12:45)
[2023-07-10] MEDS: LIDOCAINE 1% 20 ML INJ (12:45)
== END ==
LOC: RAD 11:11
PROVIDERS: PCP Preventive Medicine Public Health & General Preventive Medicine; Referring Provider Preventive Medicine Occupational Medicine; Visit Provider Preventive Medicine Occupational Medicine
DX: S43.432D Superior glenoid labrum lesion of left shoulder, subsequent encounter (principal); M75.112 Incomplete rotator cuff tear or rupture of left shoulder, not specified as traumatic; M19.012 Primary osteoarthritis, left shoulder
CPT/HCPCS: 23350; 73222